=== PATIENT | female | born 1980 | race Caucasian/White ===

== ENCOUNTER 2017-12-24 17:31 | Observation (INO) ==
[2017-12-24] MEDS ORDERED: Ondansetron 4 MG/2 ML VIAL IVP ONE (18:17)
[2017-12-24 18:35] LABS: Bilirubin,Urine Negative (Negative); Blood,Urine Negative (Negative); Clarity,Urine Clear (Clear); Color,Urine Yellow (Yellow); Glucose,Urine (UA) Normal (Normal); Ketones,Urine Trace mg/dL (Negative); Leukocyte Esterase,Urine Negative (Negative); Nitrite,Urine Negative (Negative); Protein,Urine Trace mg/dL (Neg-Trace); Specific Gravity,Urine 1.017 (1.010-1.025); Urobilinogen,Urine Normal (Normal)
[2017-12-24 18:37] LABS: Bacteria,Urine Few per hpf (None-Few); Hyaline Casts,Urine None Seen per lpf (None-Few); Squamous Epithelial Cell,Urine Many per lpf (None-Few); WBC,Urine 0-3 per hpf (0-3)
[2017-12-24 19:12] LABS: Basophils # 0.1 K/mcL (0.0-0.2); Basophils % 0.5 %; Eosinophils # 0.1 K/mcL (0.0-0.6); Eosinophils % 1.2 %; Hematocrit 42.2 % (35.3-44.9); Immature Granulocytes % 0.3 % (0-4); Lymphocytes % 20.8 %; Mean Corpuscular HGB Conc 35.5 g/dL (31.6-35.5); Mean Corpuscular Hemoglobin 29.2 pg (28.0-33.3); Mean Corpuscular Volume 82.1 fL (83.0-100.0); Mean Platelet Volume 10.1 fL (9.4-12.4); Monocytes # 0.7 K/mcL (0.0-1.3); Monocytes % 6.9 %; Neutrophils # 6.6 K/mcL (1.6-8.9); Platelet Count 304 K/mcL (140-400); Red Blood Count 5.14 M/mcL (3.82-4.97); Red Cell Distribution Width 12.7 % (11.5-14.5); Segmented Neutrophils % 70.3 %
[2017-12-24 19:20] LABS: Troponin I < 0.03 ng/mL (< 0.04)
[2017-12-24 19:24] LABS: Alanine Aminotransferase 21 Units/L (7-52); Albumin 4.6 g/dL (3.5-5.7); Albumin/Globulin Ratio 1.5 (1.1-2.2); Alkaline Phosphatase 63 Units/L (34-104); Aspartate Amino Transferase 17 Units/L (13-39); BUN/Creatinine Ratio 19 (6-26); Bilirubin,Total 0.6 mg/dL (0.3-1.0); Blood Urea Nitrogen 11 mg/dL (6-20); Calcium 9.8 mg/dL (8.6-10.3); Carbon Dioxide 26 mEq/L (23-29); Chloride 99 mEq/L (98-107); Glucose 126 mg/dL (70-105); Osmolality,Calculated 285 (280-300); Potassium 3.4 mEq/L (3.5-5.1); Sodium 137 mEq/L (136-145); Total Protein 7.6 g/dL (6.4-8.9); eGFR For African Americans > 60 (> 60); eGFR For Non-African Americans > 60 (> 60)
[2017-12-24] MEDS ORDERED: *HR* FentaNYL (PF) 100 MCG/2 ML VIAL IVP ONE (19:27)
[2017-12-24] MEDS ORDERED: 0.9 % Sodium Chloride 1,000 ML IVC ONE ×2 (19:27→21:50)
[2017-12-24] MEDS ORDERED: Isovue-370 500 ML INFUS..BTL IV ONE (19:27)
--- NOTE | 2017-12-24 20:16 | Emergency Department Note ---
Disposition Clinical Impression: Abdominal pain Qualifiers: Abdominal location: generalized Qualified Code(s): R10.84 - Generalized abdominal pain Disposition: Still a Patient Condition: Fair Reasons to Return/Additional Instructions: Please follow-up with your primary care provider for continuation of your care. Return to the emergency department if you develop any worsening of your condition or if you develop new concerning symptoms. Referrals: Millie Rider MD [Primary Care Provider] - Forms: ED Satisfaction Letter Time of Disposition: 20:30 General Adult HPI - General Chief complaint: ED Dizziness Stated complaint: rectal bleeding Time Seen by Provider: 12/24/17 17:39 Source: EMS Mode of arrival: ambulatory Limitations: no limitations Nursing Notes Reviewed: Yes Vital Signs Reviewed: Yes - History of Present Illness HPI Narrative: 37-year-old female presents emergency department for further evaluation of abdominal pain and rectal bleeding. Patient states symptoms of present over the past 4 days. Never had symptoms like this in the past. Patient states she has large amount of blood mixed with stool with every bowel movement and states that she is having at least a 4-5 bowel movements a day. Patient states she became lightheaded today and fell twice prior to arrival to the emergency department. Mother states that patient had seizure-like activity. She has a history of psychogenic seizures and is followed by a neurologist at [facility]. Patient denies new medications. She does not take antiepileptic medications. No recent fever, chills, nausea, vomiting. Patient denies recent trauma. Patient has a history of colitis and states that this feels somewhat similar to that pain. Pain Scale: 9 - Related Data Home Medications Medication Instructions Recorded Confirmed Albuterol Sulfate [Proair Hfa] 2 puff IH Q4H PRN 05/05/16 09/16/16 Aspirin 81 mg PO DAILY 05/05/16 09/28/17 Atorvastatin [Lipitor] 40 mg PO HS 05/05/16 09/28/17 Insulin Glargine,Hum.rec.anlog 50 unit SQ BID 05/05/16 09/28/17 [Lantus Solostar] Alogliptin Benzoate [Alogliptin] 25 mg PO DAILY 09/28/17 09/28/17 Dexlansoprazole [Dexilant] 60 mg PO DAILY 09/28/17 09/28/17 Diltiazem CD (24hr) [Cardizem CD] 180 mg PO BID 09/28/17 09/28/17 Gabapentin [Neurontin] 600 - 1,200 mg PO TID 09/28/17 09/28/17 Hyoscyamine Sulfate [Hyoscyamine 0.375 mg PO BID 09/28/17 09/28/17 Sulfate ER] Liraglutide [Victoza 2-Ritesh] 1.8 mg SQ DAILY 09/28/17 09/28/17 Losartan Potassium [Cozaar] 100 mg PO DAILY 09/28/17 09/28/17 Melatonin [Melatin] 3 mg PO HS 09/28/17 09/28/17 Propranolol HCl [Innopran Xl] 120 mg PO DAILY 09/28/17 09/28/17 Ranitidine HCl [Heartburn Relief] 150 mg PO HS 09/28/17 09/28/17 hydrOXYzine HCl [Hydroxyzine HCl] 50 mg PO HS 09/28/17 09/28/17 hydroCHLOROthiazide 25 mg PO QAM 09/28/17 09/28/17 [Hydrochlorothiazide] Previous Rx's Medication Instructions Recorded Potassium Chloride 10 meq PO DAILY #30 tab.er.prt 09/28/17 Dicyclomine [Bentyl] 10 mg PO QID #12 capsule 11/04/17 Ondansetron ODT [Zofran ODT] 4 mg SL Q8HR PRN #12 tab.rapdis 11/04/17 Phenazopyridine HCl [Pyridium] 200 mg PO TIDAC #9 tab 12/19/17 Allergies Allergy/AdvReac Type Severity Reaction Status Date / Time morphine Allergy Hives Verified 11/04/17 16:48 All systems ED: reviewed and negative except as stated. Review of Systems: As Per HPI Past Medical History - Past Medical History Attestation: Yes The following information was validated with the patient. Source: patient Medical history: Reports: diabetes, GERD, hyperlipidemia, hypertension Surgical history: Reports: cholecystectomy, other Psychiatric history: Reports: no psych history - Social History Smoking Status: Never smoker Smokeless Tobacco Status: No Alcohol use: Reports: none, unknown Drug use: Reports: none, unknown Physical Exam General: Alert and in no acute distress Skin: Warm, dry, intact Head: Normocephalic and atraumatic Neck: Supple, trachea midline and no tenderness Cardiovascular: RRR, no murmur, normal perfusion Respiratory: CTAB, no wheezing, cough, or respiratory distress Musculoskeletal: Normal strength, no tenderness, swelling or deformity GI: Soft, tenderness to palpation of the generalized abdomen without evidence of localization, rigidity, guarding, rebound. Neuro: A&O to person, place, time and situation. No focal deficits noted on exam Psychiatric: cooperative and appropriate mood and affect. Rectal exam: Hematochezia with bright red blood per rectum on exam that was guaiac positive. - General Limitations: no limitations General appearance: alert, lethargic Course Vital Signs Temperature 99.2 F 12/24/17 17:35 Pulse Rate 105 12/24/17 17:35 Respiratory Rate 18 12/24/17 17:35 Blood Pressure 127/79 12/24/17 17:35 O2 Sat by Pulse Oximetry 99 12/24/17 17:35 Temperature 99.2 F 12/24/17 17:35 Pulse Rate 103 12/24/17 19:30 Respiratory Rate 18 12/24/17 17:35 Blood Pressure 112/74 12/24/17 19:30 O2 Sat by Pulse Oximetry 99 12/24/17 17:35 Oxygen Delivery Oxygen Delivery Room Air Medical Decision Making - MDM Narrative Medical decision making narrative: Patient care transferred to Dr. Powell pending CT results and IV fluids and reevaluation and disposition. - Medical Records Medical records reviewed: Yes I reviewed the patient's medical records. - Lab Data Lab results reviewed: Yes I reviewed the patient's lab results. Result diagrams: 12/24/17 18:34 12/24/17 18:34 Lab Results 12/24/17 12/24/17 12/24/17 Range/Units 18:00 18:34 18:34 WBC 9.4 (4.3-11.1) K/mcL RBC 5.14 H (3.82-4.97) M/mcL Hgb 15.0 (11.5-15.4) g/dL Hct 42.2 (35.3-44.9) % MCV 82.1 L (83.0-100.0) fL MCH 29.2 (28.0-33.3) pg MCHC 35.5 (31.6-35.5) g/dL RDW 12.7 (11.5-14.5) % Plt Count 304 (140-400) K/mcL MPV 10.1 (9.4-12.4) fL Immature Gran % 0.3 (0-4) % Seg Neutrophils % 70.3 % Lymphocytes % 20.8 % Monocytes % 6.9 % Eosinophils % 1.2 % Basophils % 0.5 % Neutrophils # 6.6 (1.6-8.9) K/mcL Lymphocytes # 2.0 (0.6-4.6) K/mcL Monocytes # 0.7 (0.0-1.3) K/mcL Eosinophils # 0.1 (0.0-0.6) K/mcL Basophils # 0.1 (0.0-0.2) K/mcL Sodium 137 (136-145) mEq/L Potassium 3.4 L (3.5-5.1) mEq/L Chloride 99 (98-107) mEq/L Carbon Dioxide 26 (23-29) mEq/L BUN 11 (6-20) mg/dL Creatinine 0.59 L (0.60-1.20) mg/dL Est GFR ( Amer) > 60 (> 60) Est GFR (Non-Af Amer) > 60 (> 60) BUN/Creatinine Ratio 19 (6-26) Glucose 126 H (70-105) mg/dL Calculated Osmolality 285 (280-300) Calcium 9.8 (8.6-10.3) mg/dL Total Bilirubin 0.6 (0.3-1.0) mg/dL AST 17 (13-39) Units/L ALT 21 (7-52) Units/L Alkaline Phosphatase 63 (34-104) Units/L Troponin I < 0.03 (< 0.04) ng/mL Serum Total Protein 7.6 (6.4-8.9) g/dL Albumin 4.6 (3.5-5.7) g/dL Globulin 3.0 (2.4-3.5) g/dL Albumin/Globulin Ratio 1.5 (1.1-2.2) Urine Color Yellow (Yellow) Urine Clarity Clear (Clear) Urine pH 8.0 (5.0-8.0) pH Units Ur Specific [place] 1.017 (1.010-1.025) Urine Protein Trace (Neg-Trace) mg/dL Urine Glucose (UA) Normal (Normal) mg/dL Urine Ketones Trace H (Negative) mg/dL Urine Blood Negative (Negative) Urine Nitrite Negative (Negative) Urine Bilirubin Negative (Negative) Urine Urobilinogen Normal (Normal) mg/dL Ur Leukocyte Esterase Negative (Negative) Urine Microscopic RBC 3-5 H (0-3) per hpf Urine Microscopic WBC 0-3 (0-3) per hpf Ur Squamous Epith Cells Many H (None-Few) per lpf Urine Bacteria Few (None-Few) per hpf Hyaline Casts None Seen (None-Few) per lpf Ur Culture Indicated? NO (NO) - Radiology Data Radiology results reviewed: Yes I reviewed the patient's radiology results. - EKG Data EKG #1 EKG attestation: Yes I reviewed and interpreted this EKG. EKG results narrative: Sinus tachycardia with a rate of 104 without evidence of STEMI.
--- NOTE | 2017-12-24 22:28 | Emergency Department Note ---
START Narrative - START START: Pt signed out to me by dr mcnally. pt still having symptoms and feels dizzy and weak when getting out of bed. pt wanted admitted. she's on her 2nd L of fluid. will admit for obs. spoke to hospitalist vss at this time afebrile admit for workup for hematochezia with abd pain.
--- NOTE | 2017-12-25 01:20 | Internal Med History&Physical ---
Date of Encounter: 12/25/17 Time of Encounter: 00:53 Internal Medicine - H&P: HPI Chief complaint: rectal bleeding and dizziness Admitted From: Home Plans for Post Hospital Care: Home History of present illness: Ms. Fonseca is a 37 year old female with a past medical history of GERD, gastroparesis, IBS, diabetes, tachycardia, and hypertension who presented to the ED with abdominal pain and rectal bleeding. 3 days ago patient states that she began to have bloody stools she usually has 5-6 bowel movements and is noticing bright red blood on outside and mixed within the stools every time she goes. She states that there is some much blood on the toilet paper it seems as though she is on her period. She is not having pain near her anal opening and has not felt a mass. She does not know if she has hemroids but has not been straining more than normal. She states that she has chronic abdominal pain but it has worsened over the last 3 days and has been a constant stabbing and crampy pain. Her pain is diffuse but is worse in the suprapubic region bilaterally. She has chronic dizziness but has been dizzy more frequently since this began. She also reports having some burning with urination and increased frequency about 1 month ago and was diagnosed with a UTI due to Escherichia coli and was placed on Cipro initially then switched to Macrobid which she finished 1 week ago. Admits to still having dysuria. She denies recent travel, drinking stream water, or cooking raw chicken/eating raw eggs. She admits to fevers that been going on for months every few days ranging between temperature of 99-102. Patient recently saw GI on 12/18/17 where she reported having a colonoscopy and EGD approximately 5 months ago at [facility]. EGD report showed a polyp with no evidence of H. pylori. Patient also had a liver biopsy and was found to have a hepatic adenoma with steatosis, hemorrhage, and inflammation. Colonoscopy showed 1 tubular adenoma polyp no evidence of Crohn's or ulcerative colitis. She has also had a uterine ablation and has not had a period for 4 years since the ablation. Upon arrival to the ED patient was tachycardic at 105, blood pressure was within normal limits. orthostatic blood pressures negative. Labs showed Hemoglobin 15, MCV 82, potassium 3.4. Due to intractable abdominal pain, patient was admitted to the med/surg floor. Recent imaging studies: CTA chest and angio abdomen pelvis 09/27/17: 2. Multiple solid left pulmonary nodules. 3. 1.5 cm indeterminate right hepatic lesion. Recommend nonemergent MRI of the abdomen with without contrast using hemangioma protocol if there is no prior imaging. Head CT without contrast 09/27/17: No acute intracranial abnormality. Past Med Surg Social Fam HX - Past Medical History Medical history: diabetes, GERD, hyperlipidemia, hypertension Additional medical history: tachycardia. frequent headaches Psychiatric history: no psych history - Past Surgical History Surgical History: cholecystectomy, other Additional surgical history: tubal ligation. uterine ablation. cyst removed from Right side of head. partial liver removed - Social History Smoking Status: Never smoker Smokeless Tobacco Status: No Alcohol use: none, unknown Drug use: none, unknown - Family History Mother Living Status: Still Living Hx Family Cardiac Disorders: Yes Hx Family Respiratory Disorders: Yes (COPD) Hx Family Cancer: Yes (uterus) Father Living Status: Still Living Hx Family Cancer: Yes (bladder) Internal Medicine - H&P: Meds Albuterol Sulfate [Proair Hfa] 2 puff IH Q4H PRN 05/05/16 [History] Aspirin 81 mg PO DAILY 05/05/16 [History] Atorvastatin [Lipitor] 40 mg PO HS 05/05/16 [History] Alogliptin Benzoate [Alogliptin] 25 mg PO DAILY 09/28/17 [History] Dexlansoprazole [Dexilant] 60 mg PO DAILY 09/28/17 [History] Diltiazem CD (24hr) [Cardizem CD] 180 mg PO BID 09/28/17 [History] Gabapentin [Neurontin] 600 - 1,200 mg PO DAILY PRN 09/28/17 [History] Hyoscyamine Sulfate [Hyoscyamine Sulfate ER] 0.375 mg PO BID 09/28/17 [History] Losartan Potassium [Cozaar] 100 mg PO HS 09/28/17 [History] Potassium Chloride 10 meq PO DAILY #30 tab.er.prt 09/28/17 [Rx] Ranitidine HCl [Heartburn Relief] 150 mg PO HS 09/28/17 [History] hydrOXYzine HCl [Hydroxyzine HCl] 50 mg PO HS 09/28/17 [History] Ondansetron ODT [Zofran ODT] 4 mg SL Q8HR PRN #12 tab.rapdis 11/04/17 [Rx] Insulin Degludec [Tresiba Flextouch U-200] 110 unit SQ QPM 12/24/17 [History] Melatonin 5 mg PO HS 12/24/17 [History] hydroCHLOROthiazide [Hydrochlorothiazide] 50 mg PO QAM 12/24/17 [History] 3 Allergy/AdvReac Type Severity Reaction Status Date / Time morphine Allergy Hives Verified 12/24/17 23:14 All Systems PM: A 10-system review of systems was performed and is negative for pertinent findings except as documented above in the HPI. - Constitutional Vitals: Temp Pulse Resp BP Pulse Ox 98 F 98 17 125/85 94 12/25/17 00:40 12/25/17 00:40 12/25/17 00:40 12/25/17 00:40 12/25/17 00:40 Exam: Constitutional: Alert, in no acute distress, obese Head: Normocephalic, atraumatic Heart: Normal, regular rate and rhythm, no murmurs Lungs: Clear to auscultation, no wheezes, rales, or rhonchi Abdomen: suprapubic tenderness bilaterally, Soft, nondistended,, bowel sounds present and normal, no guarding or rigidity. Extremities: No edema, No clubbing, radial pulse +2/4, capillary refill <2sec. Skin: Skin warm and dry, no lesions, no rashes, no jaundice Neurologic: Cranial nerves II through XII grossly intact, strength 5/5 in all extremitites Psych: Cooperative with exam, good eye contact, cognitive function intact, speech clear, thought process logical, and goal directed Internal Med - H&P Results - Labs CBC & Chem 7: 12/24/17 18:34 12/24/17 18:34 - Assessment and plan (1) Rectal bleeding Current Visit: Yes Status: Acute Assessment and plan: Bright red blood per rectum, nonpainful. Most likely 2/2 to internal hemrroids as patient does not have anal pain. Last colonoscopy 5 months ago negative for IBD. Hemoglobin 15 (14.2 previous 12/19/17). Patient has seeing GI outpatient but was not having this problem at the time. If patient's H/H remain stable and vitals continue to be stable rectal bleeding can continue to be worked up as outpatient. Vitals are currently stable. Plan: - occult blood test - GI stool panel - repeat H/H in the AM (2) Abdominal pain Current Visit: Yes Status: Acute Assessment and plan: Suprapublic pain. UA negative for UTI. CT abdomen shows stable peripherally calcified lesion in the posterior right hepatic dome. No diverticulosis. Urinary bladder and pelvic organs wnl. Abdomen is soft non-distended and without peritonitis signs. Patient has chronic abdominal pain due to her IBS and therefore this may be due to flair of IBS. Plan: - Zofran Q4H - pain control: [place] - GI stool panel and ova and parasite Qualifiers: Abdominal location: generalized Qualified Code(s): R10.84 - Generalized abdominal pain (3) Hypokalemia Current Visit: Yes Status: Acute Assessment and plan: K= 3.4, given potassium chloride 40meq once. (4) Dizziness, nonspecific Current Visit: Yes Status: Acute Assessment and plan: Chronic dizziness, recently worsened. Denies syncope but has fallen over. Unsure of cause of dizziness as patient is not anemic. Dizziness may be 2/2 to her tachycardia which has also caused syncope. Plan: - repeat H/H in the AM (5) Pulmonary nodule Current Visit: Yes Status: Chronic Assessment and plan: Multiple nodules, largest 11mm. CTA 09/20, 11mm nodule present. Outpatient f/u for CT in 18-24 months. (6) HTN (hypertension) Current Visit: Yes Status: Chronic Assessment and plan: Continue home Losartan and Cardizem Qualifiers: Hypertension type: essential hypertension Qualified Code(s): I10 - Essential (primary) hypertension (7) Psychogenic nonepileptic seizure Current Visit: Yes Status: Acute Assessment and plan: Patient has had inpatient stay at [facility] to work up seizures and was diagnosed with psychogenic seizures. She has not had one in a month but had one today. She does not take any medications for this. (8) Gastroparesis Current Visit: Yes Status: Chronic Assessment and plan: Recently diagnosed with gastroparesis and GI prescribed Zofran at last appointment. (9) GERD (gastroesophageal reflux disease) Current Visit: Yes Status: Chronic Assessment and plan: Continue home Ranitidine and Dexlansoprazole. EGD within the last 6 months. Qualifiers: Esophagitis presence: without esophagitis Qualified Code(s): K21.9 - Gastro -esophageal reflux disease without esophagitis (10) IBS (irritable bowel syndrome) Current Visit: Yes Status: Chronic Assessment and plan: IBS with diarrhea and constipation. Continue Bentyl and Zofran Qualifiers: Irritable bowel syndrome type: with both diarrhea and constipation Qualified Code(s): K58.2 - Mixed irritable bowel syndrome (11) DMII (diabetes mellitus, type 2) Current Visit: No Status: Acute Assessment and plan: Home medications include Lantus. Patient has taken evening Lantus. Blood glucose 112. Plan: - low sliding scale - Accu checks TIDAC and HS - Lantus 30 units HS Qualifiers: Diabetes mellitus long term care administrator insulin use: with chcf use Diabetes mellitus complication status: without complication Qualified Code(s): E11.9 - Type 2 diabetes mellitus without complications; Z79.4 - superintendent terminal (current) use of insulin (12) Tachycardia Current Visit: Yes Status: Chronic Assessment and plan: Patient states that she is crying tachycardia and if she does not take her Cardizem her heart rate increases to 140s. They are unsure the etiology and she is going to [facility] to see a specialist. Continue Cardizem. (13) Chronic insomnia Current Visit: Yes Status: Acute Assessment and plan: Continue home melatonin and hydroxyzine (14) DVT prophylaxis Current Visit: Yes Status: Acute Assessment and plan: ICDs - Time Spent With Patient Total time spent is greater than 50% in coordination of care (as documented) at patient's floor/unit and/or counseling patient:
[2017-12-25] MEDS ORDERED: Naloxone 0.4 MG/ML INJ IVP PRN (03:11)
[2017-12-25] MEDS ORDERED: Acetaminophen 325 MG TABLET PO PRN (03:11)
[2017-12-25] MEDS ORDERED: Gabapentin 300 MG CAPSULE PO PRN (03:35)
[2017-12-25] MEDS ORDERED: D5% in Water 1,000 ML IVC PRN (03:39)
[2017-12-25] MEDS ORDERED: *HR* Dextrose 50 % in Water (Syg) 50 ML SYRINGE IVP PRN (03:39)
[2017-12-25] MEDS ORDERED: Dextrose Gel 15 GM/37.5 ML TUBE PO PRN ×2 (03:39)
[2017-12-25] MEDS ORDERED: *HR* Promethazine 25 MG/ML VIAL IVP PRN (03:52)
[2017-12-25] MEDS: hydrOXYzine pamoate 25 MG CAPSULE PO SCH ×2 (04:12→22:08)
[2017-12-25] MEDS: Melatonin 3 MG TABLET PO SCH ×2 (04:12→22:09)
[2017-12-25] MEDS: *HR* HYDROcodone/Acet 5/325 mg TABLET PO PRN ×3 (04:12→22:09)
[2017-12-25] MEDS: Ondansetron 4 MG/2 ML VIAL IVP PRN ×2 (04:12→22:11)
[2017-12-25 05:31] LABS: INR 1.1; Prothrombin Time 12.4 Seconds (9.4-12.1)
[2017-12-25 05:45] LABS: Magnesium 1.8 mg/dL (1.6-2.6); Phosphorous 4.1 mg/dL (2.7-4.5)
[2017-12-25 05:46] LABS: Alanine Aminotransferase 20 Units/L (7-52); Albumin 4.1 g/dL (3.5-5.7); Albumin/Globulin Ratio 1.5 (1.1-2.2); Alkaline Phosphatase 53 Units/L (34-104); Aspartate Amino Transferase 16 Units/L (13-39); BUN/Creatinine Ratio 13 (6-26); Bilirubin,Total 0.7 mg/dL (0.3-1.0); Blood Urea Nitrogen 7 mg/dL (6-20); Calcium 8.9 mg/dL (8.6-10.3); Carbon Dioxide 23 mEq/L (23-29); Chloride 104 mEq/L (98-107); Globulin 2.8 g/dL (2.4-3.5); Glucose 109 mg/dL (70-105); Osmolality,Calculated 283 (280-300); Potassium 3.4 mEq/L (3.5-5.1); Sodium 137 mEq/L (136-145); Total Protein 6.9 g/dL (6.4-8.9); eGFR For African Americans > 60 (> 60); eGFR For Non-African Americans > 60 (> 60)
--- NOTE | 2017-12-25 07:24 | Electrocardiograph Report ---
[address] [place], [place] [address] Test Date: 2017-12-24 Pat Name: Stephanie Fonseca Department: 104 Room: 3B Gender: F [employer] Faculty Member: AURELIA : 1980 Requested By: Albert Bazzi Order Number: [id number] Reading MD: Nate Knight Measurements Intervals [place] Rate: 104 P: 48 ND: 171 QRS: 56 QRSD: 105 T: 46 QT: 357 QTc: 418 Interpretive Statements SINUS TACHYCARDIA Poor R wave progression Electronically Signed On 12-25-2017 7:22:02 EDT by Nate Knight
[2017-12-25] MEDS: Aspirin 81 MG TAB.CHEW PO SCH (09:34)
[2017-12-25] MEDS: hydroCHLOROthiazide 25 MG TABLET PO SCH (09:34)
[2017-12-25] MEDS: Insulin LISPRO 300 UNITS/3 ML VIAL SQ SCH ×3 (09:35→18:23)
[2017-12-25] MEDS: Diltiazem SR (12hr) 90 MG CAPSULE PO SCH ×2 (09:35→22:09)
[2017-12-25 12:15] LABS: Hematocrit 38.7 % (35.3-44.9)
[2017-12-25 12:16] LABS: Hemoglobin 13.2 g/dL (11.5-15.4)
--- NOTE | 2017-12-25 17:54 | Internal Med Progress Note ---
Date of Encounter: 12/25/17 Time of Encounter: 11:30 - Assessment and plan (1) DMII (diabetes mellitus, type 2) Current Visit: Yes Status: Chronic Assessment and plan: Continue diabetic diet, Accu-Chek ACS, sliding scale insulin. Qualifiers: Diabetes mellitus terminal carman insulin use: with group home use Diabetes mellitus complication status: without complication Qualified Code(s): E11.9 - Type 2 diabetes mellitus without complications; Z79.4 - terminal carman (current) use of insulin (2) Abdominal pain Current Visit: Yes Status: Acute Assessment and plan: Patient reports chronic abdominal pain. Periumbilical pain. Patient with extensive GI history including gastroparesis, irritable bowel, GERD. UA negative for UTI. CT abdomen shows stable peripherally calcified lesion in the posterior right hepatic dome. No diverticulosis. Urinary bladder and pelvic organs wnl. Abdomen is soft non-distended and without peritonitis signs. Discussed case with GI. They recommended low fiber diet due to gastroparesis, adding Zantac 75 mg in the evening, as well as Proctofoam. Plan: - Zofran Q4H - pain control: [place] - GI stool panel and ova and parasite Low fiber diet Zantac and omeprazole Qualifiers: Abdominal location: generalized Qualified Code(s): R10.84 - Generalized abdominal pain (3) Rectal bleeding Current Visit: Yes Status: Acute Assessment and plan: Stool occult blood is negative. Patient reports bright red rectal bleeding that is streaked in her stool as well as on the toilet paper when she wipes. Patient denies feeling toilet bowl with blood. Abdominal pain as above. Hemoglobin is stable, will trend overnight. Patient denies knowledge of either internal or external hemorrhoids, however we will treat with Proctofoam. Discussed case with GI nurse practitioner, he recommends the addition of a little fiber diet in light of gastroparesis, Zantac in addition to her PPI, and Proctofoam. He wants patient to follow-up in the office in 1-2 weeks to discuss EGD and colonoscopy. (4) DVT prophylaxis Current Visit: Yes Status: Acute Assessment and plan: SCD, no pharmacological prophylaxis due to GIB. (5) HTN (hypertension) Current Visit: Yes Status: Chronic Assessment and plan: Chronic. Well controlled. Continue home medications. Qualifiers: Hypertension type: essential hypertension Qualified Code(s): I10 - Essential (primary) hypertension (6) Gastroparesis Current Visit: Yes Status: Chronic Assessment and plan: Chronic. (7) GERD (gastroesophageal reflux disease) Current Visit: Yes Status: Chronic Assessment and plan: Chronic. Plan as above. Qualifiers: Esophagitis presence: without esophagitis Qualified Code(s): K21.9 - Gastro -esophageal reflux disease without esophagitis (8) IBS (irritable bowel syndrome) Current Visit: Yes Status: Chronic Assessment and plan: Chronic. Plan as above. Qualifiers: Irritable bowel syndrome type: with both diarrhea and constipation Qualified Code(s): K58.2 - Mixed irritable bowel syndrome (9) Tachycardia Current Visit: Yes Status: Chronic (10) Chronic insomnia Current Visit: Yes Status: Resolved (11) Dizziness, nonspecific Current Visit: Yes Status: Resolved (12) Pulmonary nodule Current Visit: Yes Status: Chronic Assessment and plan: Multiple nodules, largest 11mm. CTA 09/20, 11mm nodule present. Outpatient f/u for CT in 18-24 months. (13) Hypokalemia Current Visit: Yes Status: Acute Assessment and plan: PO supplementation. Continue to monitor. (14) Psychogenic nonepileptic seizure Current Visit: Yes Status: Chronic Assessment and plan: Patient has had inpatient stay at [facility] to work up seizures and was diagnosed with psychogenic seizures. She has not had one in a month but had one today. She does not take any medications for this. Continue seizure precautions. - Time Spent With Patient Total time spent is greater than 50% in coordination of care (as documented) at patient's floor/unit and/or counseling patient: less than 15 minutes - Subjective Interval history: Patient was seen and assessed at bedside at 11:30 AM. Male visitor at bedside. Patient reports abdominal pain and rectal bleeding. Patient has extensive GI history. She reports tenderness all over, patient has tenderness to palpation around the umbilicus. She reports bright red rectal bleeding with every bowel movement. She reports that this is day 4. She reports bleeding only with wiping and denies known history of hemorrhoids either internal or external. - Constitutional Vitals: Temp Pulse Resp BP Pulse Ox 98.3 F 95 18 117/71 98 12/25/17 16:06 12/25/17 16:06 12/25/17 16:06 12/25/17 16:06 12/25/17 11:02 General appearance: Present: A&O X 3, pleasant, no acute distress, answers questions appropriately - Head Head exam: Present: atraumatic, normal inspection, normocephalic - Eye Eye exam: Present: normal appearance, conjuntiva pink, sclera anicteric - Neck Neck exam general surgery: Present: supple, trachea midline. Absent: lymphadenopathy, tenderness - Respiratory Respiratory exam: Present: CTAB. Absent: accessory muscle use, chest wall tenderness, rales, respiratory distress, rhonchi, wheezes - Cardiovascular Cardiovascular exam: Present: RRR, +S1, +S2. Absent: diastolic murmur, gallop, rubs, systolic murmur - GI/Abdominal GI/Abdominal exam: Present: normal bowel sounds, soft. Absent: distended, tenderness - Extremities Exam Extremities exam: Present: normal capillary refill, normal inspection, warm, radial pulses palpable and symmetrical. Absent: calf tenderness, cyanotic, pedal edema, tenderness - Neurological Exam Neurological exam: Present: alert, oriented X3, no focal deficits. Absent: facial droop, speech deficit - Skin Skin exam: Present: dry, intact, normal color, warm. Absent: rash Internal Medicine: Result - Labs CBC & Chem 7: 12/25/17 11:50 12/25/17 05:11 Labs: Short CBC 12/25/17 Range/Units 11:50 Hgb 13.2 D (11.5-15.4) g/dL Hct 38.7 (35.3-44.9) % BMP 12/25/17 05:11 Sodium 137 Potassium 3.4 L Chloride 104 Carbon Dioxide 23 BUN 7 Creatinine 0.54 L Glucose 109 H Calcium 8.9 Liver Function 12/25/17 Range/Units 05:11 Total Bilirubin 0.7 (0.3-1.0) mg/dL AST 16 (13-39) Units/L ALT 20 (7-52) Units/L Alkaline Phosphatase 53 (34-104) Units/L Albumin 4.1 (3.5-5.7) g/dL - ABG Interpretation ABG results: PT/INR, D-dimer PT 12.4 Seconds (9.4-12.1) H 12/25/17 05:11 - VTE Documentation of Mechanical Device: Intermittent pneumatic compression device Consult Discharge Plan - Plan Referrals: Millie Rider MD [Primary Care Provider] -
[2017-12-25] MEDS ORDERED: Famotidine 20 MG TABLET PO SCH (21:00)
[2017-12-25] MEDS ORDERED: Insulin DETEMIR 100 UNIT/ML X5UNITS SQ SCH (21:00)
[2017-12-25] MEDS ORDERED: Insulin LISPRO 300 UNITS/3 ML VIAL SQ SCH (21:00)
[2017-12-25] MEDS: Pramoxine 15 GM FOAM Package TP SCH (22:11)
[2017-12-26] MEDS: *HR* HYDROcodone/Acet 5/325 mg TABLET PO PRN (05:28)
[2017-12-26] MEDS: Ondansetron 4 MG/2 ML VIAL IVP PRN (05:28)
[2017-12-26 05:36] LABS: Basophils # 0.1 K/mcL (0.0-0.2); Basophils % 0.7 %; Eosinophils # 0.3 K/mcL (0.0-0.6); Eosinophils % 3.2 %; Hematocrit 39.2 % (35.3-44.9); Hemoglobin 13.8 g/dL (11.5-15.4); Immature Granulocytes % 0.4 % (0-4); Lymphocytes # 2.7 K/mcL (0.6-4.6); Lymphocytes % 31.3 %; Mean Corpuscular HGB Conc 35.2 g/dL (31.6-35.5); Mean Corpuscular Hemoglobin 29.4 pg (28.0-33.3); Mean Corpuscular Volume 83.6 fL (83.0-100.0); Monocytes # 0.7 K/mcL (0.0-1.3); Monocytes % 8.2 %; Neutrophils # 4.8 K/mcL (1.6-8.9); Platelet Count 284 K/mcL (140-400); Red Blood Count 4.69 M/mcL (3.82-4.97); Segmented Neutrophils % 56.2 %
[2017-12-26] MEDS: hydroCHLOROthiazide 25 MG TABLET PO SCH (08:30)
[2017-12-26] MEDS: Diltiazem SR (12hr) 90 MG CAPSULE PO SCH (08:30)
[2017-12-26] MEDS: Aspirin 81 MG TAB.CHEW PO SCH (08:30)
[2017-12-26] MEDS: Pramoxine 15 GM FOAM Package TP SCH (08:32)
[2017-12-26] MEDS: Insulin LISPRO 300 UNITS/3 ML VIAL SQ SCH ×2 (08:38→11:52)
[2017-12-26 10:58] VITALS: BP 99/63
[2017-12-26 12:24] LABS: Hematocrit 39.6 % (35.3-44.9); Hemoglobin 13.6 g/dL (11.5-15.4)
--- NOTE | 2017-12-26 13:05 | Discharge Summary ---
- NOTES TO OUTPATIENT PROVIDER Notes to Outpatient Provider: Pt was admitted for possible GIB and abdominal pain. Hgb has remained stable and WNL and pt reports resolution of rectal bleeding today. Pt still has some umbilical pain and will continue her home medications and will follow up with GI in the office in 1-2 weeks. Orders not resulted at time of discharge: Pending orders 12/25/17 08:55 Ova & Parasite Exam Routine Date of Encounter: 12/26/17 Time of Encounter: 10:55 - Discharge Diagnosis (1) DMII (diabetes mellitus, type 2) Priority: Secondary Status: Chronic Assessment and Plan: Continue home medications and accucheck regimen after discharge. . Qualifiers: Diabetes mellitus tube wrapper insulin use: with care home use Diabetes mellitus complication status: without complication Qualified Code(s): E11.9 - Type 2 diabetes mellitus without complications; Z79.4 - halfway (current) use of insulin (2) Abdominal pain Priority: Primary Status: Acute Assessment and Plan: Patient reports chronic abdominal pain. Periumbilical pain. UA negative for UTI. CT abdomen shows stable peripherally calcified lesion in the posterior right hepatic dome. No diverticulosis. Urinary bladder and pelvic organs wnl. Abdomen is soft non-distended and without peritonitis signs. Discussed case with GI. They recommended low fiber diet due to gastroparesis, adding Zantac 75 mg in the evening, as well as Proctofoam. Also will send pt with rx for Zofran ODT Qualifiers: Abdominal location: generalized Qualified Code(s): R10.84 - Generalized abdominal pain (3) Rectal bleeding Priority: Secondary Status: Resolved Assessment and Plan: Pt reports resolution of bleeding. Hbg has remained stable, no signs of bleeding or anemia. Proctofoam for discharge. Follow up with GI in 1-2 weeks in the clinic. (4) DVT prophylaxis Priority: Secondary Status: Acute Assessment and Plan: SCD, no pharmacological prophylaxis due to GIB. Pt was ambulatory in the room. (5) HTN (hypertension) Priority: Secondary Status: Chronic Assessment and Plan: Chronic. Stable. Continue home medications. Qualifiers: Hypertension type: essential hypertension Qualified Code(s): I10 - Essential (primary) hypertension (6) Gastroparesis Priority: Secondary Status: Chronic Assessment and Plan: Chronic. Low fiber diet. Follow with GI (7) GERD (gastroesophageal reflux disease) Priority: Secondary Status: Chronic Assessment and Plan: Chronic. Plan as above. Continue home medications. Qualifiers: Esophagitis presence: without esophagitis Qualified Code(s): K21.9 - Gastro -esophageal reflux disease without esophagitis (8) IBS (irritable bowel syndrome) Priority: Secondary Status: Chronic Assessment and Plan: Chronic. Continue home medications and follow with GI in the next 1-2 weeks. Qualifiers: Irritable bowel syndrome type: with both diarrhea and constipation Qualified Code(s): K58.2 - Mixed irritable bowel syndrome (9) Tachycardia Priority: Secondary Status: Chronic Assessment and Plan: Resolved. (10) Chronic insomnia Priority: Secondary Status: Resolved Assessment and Plan: Continue home medications. (11) Dizziness, nonspecific Priority: Secondary Status: Resolved Assessment and Plan: Resolved. Pt denies today. Recommend that pt follow up with PCP for continued workup if symptoms persist. (12) Pulmonary nodule Priority: Secondary Status: Chronic Assessment and Plan: Multiple nodules, largest 11mm. CTA 09/20, 11mm nodule present. Outpatient f/u for CT in 18-24 months. (13) Hypokalemia Priority: Secondary Status: Acute Assessment and Plan: Resolved. Continue to monitor. (14) Psychogenic nonepileptic seizure Priority: Secondary Status: Chronic Assessment and Plan: Patient was inpatient at [facility] to work up for seizures and was diagnosed with psychogenic seizures. She is not on antiepileptic medications. Hospital course: Ms. Fonseca is a 37 year old female with extensive GI history including gastroparesis, IBS, GERD. She also has a past medical history of chronic insomnia, psychogenic nonepileptic seizures, type 2 diabetes, liver nodule, lung nodules, hypertension. Pt reported GIB and abdominal pain. Hgb remained stable, FOBS was positive. Pt reports that bleeding has stopped today, Hgb has remained stable and WNL. Pt reports some relief of abdominal pain, but medications have been optimized. I spoke with [facility] and pt is to follow up with them in the office in 1-2 weeks for evaluation and possible EGD and colonoscopy. Labs and vitals are stable and pt is ready for discharge. Discharge discussed with: patient, family - Time Spent with Patient Total time spent providing and/or coordinating discharge services: Less than 30 minutes - Discharge Medications Prescriptions: Ondansetron ODT [Zofran ODT] 4 mg PO Q6H PRN #14 tab.rapdis PRN Reason: Nausea Pramoxine HCl [Proctofoam] 15 gm TP BID #4 foam Home Medications: Albuterol Sulfate [Proair Hfa] 2 puff IH Q4H PRN 05/05/16 [History] Aspirin 81 mg PO DAILY 05/05/16 [History] Atorvastatin [Lipitor] 40 mg PO HS 05/05/16 [History] Alogliptin Benzoate [Alogliptin] 25 mg PO DAILY 09/28/17 [History] Dexlansoprazole [Dexilant] 60 mg PO DAILY 09/28/17 [History] Diltiazem CD (24hr) [Cardizem CD] 180 mg PO BID 09/28/17 [History] Gabapentin [Neurontin] 600 - 1,200 mg PO DAILY PRN 09/28/17 [History] Hyoscyamine Sulfate [Hyoscyamine Sulfate ER] 0.375 mg PO BID 09/28/17 [History] Losartan Potassium [Cozaar] 100 mg PO HS 09/28/17 [History] Potassium Chloride 10 meq PO DAILY #30 tab.er.prt 09/28/17 [Rx] Ranitidine HCl [Heartburn Relief] 150 mg PO HS 09/28/17 [History] hydrOXYzine HCl [Hydroxyzine HCl] 50 mg PO HS 09/28/17 [History] Ondansetron ODT [Zofran ODT] 4 mg SL Q8HR PRN #12 tab.rapdis 11/04/17 [Rx] Insulin Degludec [Tresiba Flextouch U-200] 110 unit SQ QPM 12/24/17 [History] Melatonin 5 mg PO HS 12/24/17 [History] hydroCHLOROthiazide [Hydrochlorothiazide] 50 mg PO QAM 12/24/17 [History] Ondansetron ODT [Zofran ODT] 4 mg PO Q6H PRN #14 tab.rapdis 12/26/17 [Rx] Pramoxine HCl [Proctofoam] 15 gm TP BID #4 foam 12/26/17 [Rx] Allergies/Adverse Reactions: 3 Allergy/AdvReac Type Severity Reaction Status Date / Time morphine Allergy Hives Verified 12/24/17 23:14 Date of admission: 12/24/17 22:59 Primary care physician: Millie Rider MD Discharging clinician: Anyi Irby Anticipated date of discharge: 12/26/17 - Constitutional Vitals: Temp Pulse Resp BP Pulse Ox 99.0 F 81 16 99/63 96 12/26/17 10:56 12/26/17 10:56 12/26/17 10:56 12/26/17 10:56 12/26/17 10:56 General appearance: Present: cooperative, A&O X 3, pleasant, no acute distress, answers questions appropriately - Head Head exam: Present: atraumatic, normal inspection, normocephalic - Eye Eye exam: Present: normal appearance, conjuntiva pink, sclera anicteric - Neck Neck exam general surgery: Present: supple, trachea midline. Absent: lymphadenopathy, tenderness - Respiratory Respiratory exam: Present: CTAB. Absent: accessory muscle use, chest wall tenderness, rales, rhonchi, wheezes - Cardiovascular Cardiovascular exam: Present: RRR, +S1, +S2. Absent: diastolic murmur, gallop, rubs, systolic murmur - GI/Abdominal GI/Abdominal exam: Present: normal bowel sounds, soft. Absent: distended, hepatomegaly, tenderness - Extremities Exam Extremities exam: Present: normal capillary refill, normal inspection, warm, radial pulses palpable and symmetrical. Absent: calf tenderness, cyanotic, pedal edema, tenderness - Neurological Exam Neurological exam: Present: alert, oriented X3, strengths equal and symetr throughout. Absent: pronater drift, facial droop, speech deficit - Skin Skin exam: Present: dry, intact, normal color, warm. Absent: rash - Patient Status Disposition: Home, Self-Care Condition: Good Functional capacity at discharge: independent ambulation Overall status at discharge: patient is back to baseline - Discharge Instructions Instructions: Rectal Bleeding (DC) Follow Up With: Millie Rider MD [Primary Care Provider] - Additional Instructions: Follow up with GI in the next 1-2 weeks. Your prescriptions are at your pharmacy. Follow up with your PCP in the next 7-10 days for a recheck. Return to the ER as needed for any other problems or concerns, or if your symptoms return or worsen. Follow-up appointments: If there is not an appointment listed below, please call your physician and schedule a follow-up appointment. If you have congestive heart failure and your symptoms return, make an appointment with your physician. Medication List: Carry an up to date list of medications you are taking at all time. We have given you an updated medication list including any new medications that you have been prescribed. Please provide that list to your primary provider Symptoms: If your condition changes or you experience any of the following symptoms, notify your physician immediately: Unusual or worsening pain, fever, persistent nausea and vomiting, bleeding, increase in swelling (especially in your legs), sudden weight gain, extreme dizziness, chest pain, increased drainage or redness from a wound or incision. Go to the emergency department if you experience a problem with breathing. Weights: If you have a history of swelling or shortness of breath, weigh yourself daily and notify your physician if you have a weight gain of two or more pounds in one day or 5 or more pounds in a week. If you experience any of the warning signs for stroke: Sudden numbness or weakness of the face, arm or leg; especially on one side of the body, sudden confusion, trouble speaking or understanding, sudden trouble seeing in one or both eyes, sudden trouble walking, dizziness, loss of balance or coordination, sudden sever headache with no cause; Call 911 or go to the emergency room. Stroke is a medical emergency. Some risk factors for stroke: Age, cigarette smoking, diabetes, excessive alcohol consumption, family history , high blood pressure, overweight, physical inactivity, prior stroke, heart attack, diagnosis of carotid artery stenosis or other artery disease. If you smoke, STOP: Smoking or tobacco use significantly increases your risk of heart and lung disease. Your chance of disease greatly increases if you continue to smoke. For more information, call the [place] tobacco quit line for smoking cessation QUIT-NOW ( ) - Diet and Activity Activity: increase activity as tolerated Diet: advance to your usual diet - VTE Documentation of Mechanical Device: Intermittent pneumatic compression device
[2017-12-30 08:18] LABS: Ova & Parasite Stain NEGATIVE (Negative)
== END 2017-12-26 15:05 | disposition home or self-care (01) ==
LOC: EMEROO 17:31 → 3BNU 17:31
PROVIDERS: ADMIT Family Medicine; ATTEND Family Medicine

== ENCOUNTER 2019-03-07 12:50 | Observation (INO) ==
--- NOTE | 2019-03-07 13:17 | Emergency Department Note ---
Disposition Clinical Impression: Chest pain Qualifiers: Chest pain type: unspecified Qualified Code(s): R07.9 - Chest pain, unspecified Dyspnea Qualifiers: Dyspnea type: unspecified Qualified Code(s): R06.00 - Dyspnea, unspecified Disposition: Admitted As Inpatient Time of Disposition: 16:35 Chest Pain HPI - General Chief Complaint: ED Chest Pain Stated Complaint: chest pain,nausea Time Seen by Provider: 03/07/19 12:59 Source: patient Limitations: no limitations Vital Signs Reviewed: Yes Nursing Notes Reviewed: Yes - History of Present Illness HPI Narrative: Patient is a 38-year-old female with past medical history including type 2 diabetes mellitus, hypertension, hyperlipidemia, presenting with a chief complaint of chest pain. The patient states 2 hours prior to arrival, she suddenly developed right sided and substernal chest pain that was sharp and radiating into her right arm. She states she felt really nauseous and short of breath associated with this. Nothing makes it better or worse. She has never scans this before. She states she was sitting in the car when this happened. Denies any palpitations, lightheadedness or dizziness, abdominal pain, fevers or chills, recent travel or surgery, history of blood clots, hormone therapy, history of cancer, history of coronary artery disease or stent placements, family history of MO less than age 50. Patient states she has had an aspirin today. Severity scale (1-10): 9 - Related Data Home Medications Medication Instructions Recorded Confirmed Albuterol Sulfate [Proair Hfa] 2 puff IH Q4H PRN 05/05/16 03/07/19 Aspirin 81 mg PO DAILY 05/05/16 03/07/19 Atorvastatin [Lipitor] 40 mg PO HS 05/05/16 03/07/19 Dexlansoprazole [Dexilant] 60 mg PO DAILY 09/28/17 03/07/19 Gabapentin [Neurontin] 600 mg PO TID 09/28/17 03/07/19 Losartan Potassium [Cozaar] 100 mg PO DAILY 09/28/17 03/07/19 Ranitidine HCl [Heartburn Relief] 150 mg PO HS 09/28/17 03/07/19 hydrOXYzine HCl [Hydroxyzine HCl] 50 mg PO TID PRN 09/28/17 03/07/19 Insulin Degludec [Tresiba 55 unit SQ BID 12/24/17 03/07/19 Flextouch U-200] Fluticasone Propionate Nasal 100 mcg NS DAILY PRN 03/07/19 03/07/19 [Flonase] Ivabradine HCl [Corlanor] 5 mg PO BID 03/07/19 03/07/19 Metformin HCl [Metformin ER 1,000 mg PO DAILY 03/07/19 03/07/19 Gastric] Ondansetron ODT [Zofran ODT] 8 mg SL Q8HR PRN 03/07/19 03/07/19 lamoTRIgine [Lamotrigine] 200 mg PO HS 03/07/19 03/07/19 traZODone [TraZODone] 100 mg PO HS PRN 03/07/19 03/07/19 Allergies Allergy/AdvReac Type Severity Reaction Status Date / Time morphine Allergy Hives Verified 03/07/19 12:53 tramadol Allergy Hives Verified 03/07/19 12:53 All systems ED: reviewed and negative except as stated. Review of Systems: As Per HPI Constitutional: Denies: fever, chills Cardiovascular: Reports: chest pain Respiratory: Reports: dyspnea. Denies: cough Gastrointestinal: Reports: nausea. Denies: abdominal pain, vomiting Genitourinary: Denies: dysuria, hematuria Neurological: Denies: headache, weakness Chest Pain PMH - Past Medical History Medical history: Reports: diabetes, GERD, hyperlipidemia, hypertension Surgical history: Reports: cholecystectomy, other Psychiatric history: Reports: anxiety, depression - Social History Smoking Status: Never smoker Alcohol use: Reports: none Drug use: Reports: none Physical Exam - General Limitations: no limitations General appearance: alert, in no apparent distress - Head Head exam: atraumatic, normocephalic - Eye Eye exam: Present: normal appearance, EOMI - ENT ENT exam: normal exam, normal oropharynx - Neck Neck exam: Present: normal inspection, trachea midline - Chest Chest inspection: Present: normal inspection, symmetric chest wall rise - Respiratory Respiratory exam: Present: normal lung sounds bilaterally. Absent: respiratory distress, wheezes - Cardiovascular Cardiovascular exam: Present: normal rhythm, tachycardia, normal heart sounds, other (Bilateral radial pulses are equal and palpable) - Abdominal Exam Abdominal exam: Present: soft, Non-Tender. Absent: distention - Extremities Exam Extremities exam: Present: normal inspection. Absent: tenderness, normal capillary refill, pedal edema, calf tenderness - Neurological Exam Neurological exam: Present: alert, oriented X3 - Psychiatric Psychiatric exam: Present: normal affect, normal mood - Skin Skin exam: Present: warm, dry. Absent: diaphoresis, pallor Course Vital Signs Temperature 99.0 F 03/07/19 12:51 Pulse Rate 102 03/07/19 12:51 Respiratory Rate 16 03/07/19 12:51 Blood Pressure 147/96 03/07/19 12:51 O2 Sat by Pulse Oximetry 100 03/07/19 12:51 Temperature 98.3 F 03/07/19 18:53 Pulse Rate 94 03/07/19 18:53 Respiratory Rate 16 03/07/19 18:53 Blood Pressure 125/89 03/07/19 18:53 O2 Sat by Pulse Oximetry 95 03/07/19 20:57 Oxygen Delivery Oxygen Delivery Room Air Chest Pain - MDM Narrative Medical decision making narrative: Patient is presenting with chest pain that suddenly started 2 hours prior to arrival associated with nausea, pain radiating into her right arm. Heart score is a 4 secondary to nonspecific EKG changes, risk factors. We will obtain ACS workup. Patient has no risk factors for PE but is tachycardic so D-dimer added. 15:15 Labs and imaging reviewed. Troponin less than 0.03. Patient does still has some chest pain but it is decreased. She will be admitted for ACS workup. Hospice has been paged for admission. Patient still has chest pain so nitroglycerin trial. 16:[address] Hyde who accepts admission. - Medical Records Medical records reviewed: Yes I reviewed the patient's medical records. - Lab Data Lab results reviewed: Yes I reviewed the patient's lab results. Result diagrams: 03/07/19 13:36 03/07/19 13:36 Lab Results 03/07/19 03/07/19 03/07/19 Range/Units 13:36 13:36 13:36 WBC 7.8 (4.3-11.1) K/mcL RBC 4.75 (3.82-4.97) M/mcL Hgb 13.6 (11.5-15.4) g/dL Hct 41.1 (35.3-44.9) % MCV 86.5 (83.0-100.0) fL MCH 28.6 (28.0-33.3) pg MCHC 33.1 (31.6-35.5) g/dL RDW 13.1 (11.5-14.5) % Plt Count 331 (140-400) K/mcL MPV 9.6 (9.4-12.4) fL Immature Gran % 0.1 (0-4) % Seg Neutrophils % 59.1 % Lymphocytes % 32.0 % Monocytes % 5.6 % Eosinophils % 2.6 % Basophils % 0.6 % Neutrophils # 4.6 (1.6-8.9) K/mcL Lymphocytes # 2.5 (0.6-4.6) K/mcL Monocytes # 0.4 (0.0-1.3) K/mcL Eosinophils # 0.2 (0.0-0.6) K/mcL Basophils # 0.1 (0.0-0.2) K/mcL PT 11.9 (9.4-12.1) Seconds INR 1.0 APTT 31.7 (26.0-36.0) Seconds D-Dimer (0-500) ng/mLFEU Sodium 141 (136-145) mEq/L Potassium 3.7 (3.5-5.1) mEq/L Chloride 103 (98-107) mEq/L Carbon Dioxide 23 (23-29) mEq/L BUN 16 (6-20) mg/dL Creatinine 0.63 (0.60-1.20) mg/dL Est GFR ( Amer) > 60 (> 60) Est GFR (Non-Af Amer) > 60 (> 60) BUN/Creatinine Ratio 25 (6-26) Glucose 179 H (70-105) mg/dL Est Mean Plasma Glucose mg/dl Hemoglobin A1c ( - 5.6) % Calculated Osmolality 298 (280-300) Calcium 9.3 (8.6-10.3) mg/dL Total Bilirubin 0.4 (0.3-1.0) mg/dL Direct Bilirubin 0.1 (0.0-0.2) mg/dL Indirect Bilirubin 0.3 (0.0-1.2) mg/dL AST 15 (13-39) Units/L ALT 19 (7-52) Units/L Alkaline Phosphatase 62 (34-104) Units/L Troponin I < 0.03 (< 0.04) ng/mL Serum Total Protein 7.4 (6.4-8.9) g/dL Albumin 4.6 (3.5-5.7) g/dL Globulin 2.8 (2.4-3.5) g/dL Albumin/Globulin Ratio 1.6 (1.1-2.2) Lipase 21 (11-82) Units/L 03/07/19 03/07/19 Range/Units 13:36 13:36 WBC (4.3-11.1) K/mcL RBC (3.82-4.97) M/mcL Hgb (11.5-15.4) g/dL Hct (35.3-44.9) % MCV (83.0-100.0) fL MCH (28.0-33.3) pg MCHC (31.6-35.5) g/dL RDW (11.5-14.5) % Plt Count (140-400) K/mcL MPV (9.4-12.4) fL Immature Gran % (0-4) % Seg Neutrophils % % Lymphocytes % % Monocytes % % Eosinophils % % Basophils % % Neutrophils # (1.6-8.9) K/mcL Lymphocytes # (0.6-4.6) K/mcL Monocytes # (0.0-1.3) K/mcL Eosinophils # (0.0-0.6) K/mcL Basophils # (0.0-0.2) K/mcL PT (9.4-12.1) Seconds INR APTT (26.0-36.0) Seconds D-Dimer < 215 (0-500) ng/mLFEU Sodium (136-145) mEq/L Potassium (3.5-5.1) mEq/L Chloride (98-107) mEq/L Carbon Dioxide (23-29) mEq/L BUN (6-20) mg/dL Creatinine (0.60-1.20) mg/dL Est GFR ( Amer) (> 60) Est GFR (Non-Af Amer) (> 60) BUN/Creatinine Ratio (6-26) Glucose (70-105) mg/dL Est Mean Plasma Glucose 148 mg/dl Hemoglobin A1c 6.8 H ( - 5.6) % Calculated Osmolality (280-300) Calcium (8.6-10.3) mg/dL Total Bilirubin (0.3-1.0) mg/dL Direct Bilirubin (0.0-0.2) mg/dL Indirect Bilirubin (0.0-1.2) mg/dL AST (13-39) Units/L ALT (7-52) Units/L Alkaline Phosphatase (34-104) Units/L Troponin I (< 0.04) ng/mL Serum Total Protein (6.4-8.9) g/dL Albumin (3.5-5.7) g/dL Globulin (2.4-3.5) g/dL Albumin/Globulin Ratio (1.1-2.2) Lipase (11-82) Units/L - Radiology Data Radiology results reviewed: Yes I reviewed the patient's radiology results. Chest X-Ray 03/07/19 13:00 IMPRESSION: Negative portable study. D/ / Nina Richards Cha, MD / Nina Richards Cha, MD Interpreting Provider: Nina Richards Cha, MD - EKG Data EKG attestation: Yes I reviewed and interpreted this EKG. EKG results narrative: EKG obtained at 1303 shows sinus tachycardia with heart rate 108, TN interval 16 22, QRS duration 94, QTC 580, T wave inversion in V1, V2, V3, no ST elevation, no ST depression, Q waves in lead 3, compared to old EKG on 12/24/2017 which shows no new changes. Heart Score - Score History: Moderately Suspicious EKG: Non Specific repolarisation Disturbance Age: Less than 45 Risk Factors: Equal/Greater than 3 risk factor or history of atherosclerotic disease Troponin: Less than normal limit HEART Score Total: 4 Attestation Statement - Attestation Attestation: I, Albert Bazzi, examined this patient and my medical decision-making was reviewed with the COMMUNITY NUTRITION EDUCATOR/PA/Advanced Practice Nurse/Resident Physician. I agree with the documented findings, disposition and treatment plan as described except to the extent set forth below. 38-year-old female presents emergency Department with concerns of chest pain. She reports associated nausea and lightheadedness. She denied diaphoresis. She has a history of hypertension, hyperlipidemia, diabetes. Patient denies history of previous cardiac evaluation. She is tachycardic on initial evaluation. D- dimer was negative in the emergency department. Chest x-ray did not show evid ence of acute infiltrate. EKG did not show evidence of STEMI.I reviewed the EKG with the resident and agree with the interpretation. Patient is tachycardic in the emergency department however she states that this is baseline for her. Patient will be admitted to the hospitalist for further care and evaluation.
[2019-03-07 14:07] LABS: Basophils # 0.1 K/mcL (0.0-0.2); Basophils % 0.6 %; Eosinophils # 0.2 K/mcL (0.0-0.6); Eosinophils % 2.6 %; Hematocrit 41.1 % (35.3-44.9); Hemoglobin 13.6 g/dL (11.5-15.4); Immature Granulocytes % 0.1 % (0-4); Lymphocytes # 2.5 K/mcL (0.6-4.6); Mean Corpuscular HGB Conc 33.1 g/dL (31.6-35.5); Mean Corpuscular Hemoglobin 28.6 pg (28.0-33.3); Mean Corpuscular Volume 86.5 fL (83.0-100.0); Mean Platelet Volume 9.6 fL (9.4-12.4); Monocytes # 0.4 K/mcL (0.0-1.3); Monocytes % 5.6 %; Neutrophils # 4.6 K/mcL (1.6-8.9); Platelet Count 331 K/mcL (140-400); Red Blood Count 4.75 M/mcL (3.82-4.97); Red Cell Distribution Width 13.1 % (11.5-14.5); Segmented Neutrophils % 59.1 %; White Blood Count 7.8 K/mcL (4.3-11.1)
[2019-03-07 14:17] LABS: Prothrombin Time 11.9 Seconds (9.4-12.1)
[2019-03-07 14:18] LABS: BUN/Creatinine Ratio 25 (6-26); Blood Urea Nitrogen 16 mg/dL (6-20); Calcium 9.3 mg/dL (8.6-10.3); Carbon Dioxide 23 mEq/L (23-29); Chloride 103 mEq/L (98-107); Glucose 179 mg/dL (70-105); Osmolality,Calculated 298 (280-300); Potassium 3.7 mEq/L (3.5-5.1); Sodium 141 mEq/L (136-145); Troponin I < 0.03 ng/mL (< 0.04); eGFR For African Americans > 60 (> 60); eGFR For Non-African Americans > 60 (> 60)
[2019-03-07 14:19] LABS: Activated Partial Thrombo Time 31.7 Seconds (26.0-36.0)
[2019-03-07] MEDS ORDERED: Nitroglycerin 0.4 MG TAB.SUBL SL PRN (16:20)
[2019-03-07] MEDS ORDERED: Naloxone 0.4 MG/ML INJ IVP PRN (16:38)
[2019-03-07] MEDS ORDERED: hydrOXYzine pamoate 25 MG CAPSULE PO PRN (17:04)
[2019-03-07] MEDS ORDERED: Fluticasone Propionate Nasal 50 MCG/SPRAY BOTTLE NS PRN (17:04)
[2019-03-07] MEDS ORDERED: Isovue-370 500 ML BOTTLE IVP ONE (17:07)
[2019-03-07] MEDS ORDERED: *HR* Dextrose 50 % in Water (Syg) 50 ML SYRINGE IVP PRN (17:08)
[2019-03-07] MEDS ORDERED: D5% in Water 1,000 ML IVC PRN (17:08)
[2019-03-07] MEDS ORDERED: Dextrose Gel 15 GM/37.5 ML TUBE PO PRN ×2 (17:08)
--- NOTE | 2019-03-07 17:44 | Internal Med History&Physical ---
Date of Encounter: 03/07/19 Time of Encounter: 17:00 Internal Medicine - H&P: HPI Chief complaint: Chest pain and abdominal pain History of present illness: Ms. Fonseca is a 38 year old female with pmh of CHF, hypertension, diabetes presenting with complaints of chest pain and abdominal pain of 1 day duration. Patient says she was in a car today when she experienced a sudden onset pressure like chest pain that was midsternal and radiating to the back and right arm. Pain was described as a sensation of being unable to catch her breath. She denies any fevers or chills. She also complains of a right sided abdominal pain that started around the same time. Pain is non radiating. No aggravating or relieving factors. She denies any vomiting, admits to nausea. Denies any fevers or chills In the ER, troponins were negative, EKG showed some T wave inversions but no a cute changes from an old EKG. She is being admitted for further management Past Med Surg Social Fam HX - Past Medical History Medical history: diabetes, GERD, hyperlipidemia, hypertension Additional medical history: tachycardia. frequent headaches Psychiatric history: anxiety, depression - Past Surgical History Surgical History: cholecystectomy, other Additional surgical history: tubal ligation. uterine ablation. cyst removed from Right side of head. partial liver removed - Social History Smoking Status: Never smoker Smokeless Tobacco Status: No Alcohol use: none Drug use: none - Family History Mother Living Status: Still Living Hx Family Cardiac Disorders: Yes Hx Family Respiratory Disorders: Yes (COPD) Hx Family Cancer: Yes (uterus) Father Living Status: Still Living Hx Family Cancer: Yes (bladder) Internal Medicine - H&P: Meds Albuterol Sulfate [Proair Hfa] 2 puff IH Q4H PRN 05/05/16 [History] Aspirin 81 mg PO DAILY 05/05/16 [History] Atorvastatin [Lipitor] 40 mg PO HS 05/05/16 [History] Dexlansoprazole [Dexilant] 60 mg PO DAILY 09/28/17 [History] Gabapentin [Neurontin] 600 mg PO TID 09/28/17 [History] Losartan Potassium [Cozaar] 100 mg PO DAILY 09/28/17 [History] Ranitidine HCl [Heartburn Relief] 150 mg PO HS 09/28/17 [History] hydrOXYzine HCl [Hydroxyzine HCl] 50 mg PO TID PRN 09/28/17 [History] Insulin Degludec [Tresiba Flextouch U-200] 55 unit SQ BID 12/24/17 [History] Fluticasone Propionate Nasal [Flonase] 100 mcg NS DAILY PRN 03/07/19 [History] Ivabradine HCl [Corlanor] 5 mg PO BID 03/07/19 [History] Metformin HCl [Metformin ER Gastric] 1,000 mg PO DAILY 03/07/19 [History] Ondansetron ODT [Zofran ODT] 8 mg SL Q8HR PRN 03/07/19 [History] lamoTRIgine [Lamotrigine] 200 mg PO HS 03/07/19 [History] traZODone [TraZODone] 100 mg PO HS PRN 03/07/19 [History] Allergy/AdvReac Type Severity Reaction Status Date / Time morphine Allergy Hives Verified 03/07/19 12:53 tramadol Allergy Hives Verified 03/07/19 12:53 All Systems PM: A 10-system review of systems was performed and is negative for pertinent findings except as documented above in the HPI. - Constitutional Constitutional: no chills, no fever(s), no night sweats - EENT Eyes: no change in vision, no discharge, no pain, no photophobia Ears: no ear discharge, no ear pain, no tinnitus Nose, mouth and throat: no dysphagia, no nasal discharge, no neck pain, no sore throat - Cardiovascular Cardiovascular ROS IM: chest pain, no diaphoresis, no dyspnea, no lightheadedness, no palpitations, no syncope - Respiratory Respiratory: dyspnea, no cough, no wheezing, no excessive phlegm production - Gastrointestinal Gastrointestinal: abdominal pain, no diarrhea, no hematemesis, no hematochezia, no melena, no nausea, no vomiting - Genitourinary Genitourinary: no change in urinary stream, no dysuria, no flank pain, no hematuria - Musculoskeletal Musculoskeletal ROS IM: no numbness, no tingling - Integumentary Integumentary IM: no rash, no unusual bruising - Neurological Neurological ROS: no confusion, no convulsions, no focal weakness, no numbness, no tingling, no tremor(s) - Hematologic/Lymphatic Hematologic/Lymphatic: no easy bruising - Constitutional Vitals: Temp Pulse Resp BP Pulse Ox 99.0 F 102 16 147/96 100 03/07/19 12:51 03/07/19 12:51 03/07/19 12:51 03/07/19 12:51 03/07/19 13:30 Exam: NAD Right upper quadrant tenderness to palpation - Head Head exam: Present: atraumatic, normocephalic - Eye Eye exam: Present: PERRL, conjuntiva pink, sclera anicteric Pupils: Present: PERRL - Neck Neck exam general surgery: Present: supple, trachea midline. Absent: lymphadenopathy - Respiratory Respiratory exam: Present: CTAB. Absent: accessory muscle use, rales, rhonchi, wheezes - Cardiovascular Cardiovascular exam: Present: RRR, +S1, +S2. Absent: diastolic murmur, gallop, rubs, systolic murmur - GI/Abdominal GI/Abdominal exam: Present: normal bowel sounds, soft, tenderness, no peritoneal signs. Absent: distended - Extremities Exam Extremities exam: Present: warm, radial pulses palpable and symmetrical. Absent: calf tenderness, cyanotic, pedal edema - Neurological Exam Neurological exam: Present: CN II-XII intact, oriented X3, no focal deficits. Absent: pronater drift, facial droop, speech deficit - Skin Skin exam: Present: dry, intact Internal Med - H&P Results - Labs CBC & Chem 7: 03/07/19 13:36 03/07/19 13:36 Labs: Short CBC 03/07/19 Range/Units 13:36 WBC 7.8 (4.3-11.1) K/mcL Hgb 13.6 (11.5-15.4) g/dL Hct 41.1 (35.3-44.9) % Plt Count 331 (140-400) K/mcL Neutrophils # 4.6 (1.6-8.9) K/mcL BMP 03/07/19 13:36 Sodium 141 Potassium 3.7 Chloride 103 Carbon Dioxide 23 BUN 16 Creatinine 0.63 Glucose 179 H Calcium 9.3 Cardiac Enzymes 03/07/19 Range/Units 13:36 Troponin I < 0.03 (< 0.04) ng/mL - Impressions ITS Impressions Chest X-Ray 03/07/19 13:00 IMPRESSION: Negative portable study. D/ / Nina Richards Cha, MD / Nina Richards Cha, MD Interpreting Provider: Nina Richards Cha, MD - Assessment and Plan (1) Chest pain Current Visit: Yes Status: Acute Assessment and plan: Patient comes in with chest pain of 1 day duration. Has risk factors for CAD such as obesity, htn, diabetes Will obtain echo and stress test in am. Continue aspirin and statin Qualifiers: Chest pain type: unspecified Qualified Code(s): R07.9 - Chest pain, unspecified (2) Abdominal pain Current Visit: Yes Status: Acute Assessment and plan: Has abdominal pain of 1 day duration. Unclear etiology. Reportedly had cholecystectomy and partial liver lobectomy for nodules Obtain LFTs, CT abdomen and pelvis, lipase Qualifiers: Abdominal location: generalized Qualified Code(s): R10.84 - Generalized abdominal pain (3) DMII (diabetes mellitus, type 2) Current Visit: Yes Status: Chronic Assessment and plan: Continue insulin and monitor fingersticks Qualifiers: Diabetes mellitus correction insulin use: with correction use Diabetes mellitus complication status: without complication Qualified Code(s): E11.9 - Type 2 diabetes mellitus without complications; Z79.4 - skilled nursing (current) use of insulin (4) DVT prophylaxis Current Visit: Yes Status: Acute Assessment and plan: Heparin sc - Time Spent With Patient Total time spent is greater than 50% in coordination of care (as documented) at patient's floor/unit and/or counseling patient:
[2019-03-07 17:51] LABS: Estimated Average Glucose 148 mg/dl
[2019-03-07] MEDS: Aspirin 81 MG TAB.CHEW PO SCH (18:07)
[2019-03-07 18:09] LABS: Alanine Aminotransferase 19 Units/L (7-52); Albumin 4.6 g/dL (3.5-5.7); Albumin/Globulin Ratio 1.6 (1.1-2.2); Alkaline Phosphatase 62 Units/L (34-104); Aspartate Amino Transferase 15 Units/L (13-39); Bilirubin,Direct 0.1 mg/dL (0.0-0.2); Bilirubin,Indirect 0.3 mg/dL (0.0-1.2); Bilirubin,Total 0.4 mg/dL (0.3-1.0); Globulin 2.8 g/dL (2.4-3.5); Lipase 21 Units/L (11-82); Total Protein 7.4 g/dL (6.4-8.9)
[2019-03-07] MEDS: *HR* Heparin 5,000 UNIT/ML VIAL SQ SCH (18:09)
[2019-03-07] MEDS: Famotidine 20 MG TABLET PO SCH (20:38)
[2019-03-07] MEDS: lamoTRIgine 100 MG TABLET PO SCH (20:38)
[2019-03-07] MEDS: Gabapentin 300 MG CAPSULE PO SCH (20:38)
[2019-03-07] MEDS: Insulin DETEMIR 100 UNIT/ML X5UNITS SQ SCH (20:39)
[2019-03-07] MEDS: IVABRADINE HCL 5 MG PO SCH (20:39)
[2019-03-07] MEDS: traZODone 50 MG TABLET PO PRN (20:42)
[2019-03-07] MEDS ORDERED: INSULIN DEGLUDEC 55 UNIT SQ SCH (21:00)
[2019-03-07] MEDS ORDERED: Acetaminophen 325 MG TABLET PO ONE (23:22)
[2019-03-08 04:29] LABS: Basophils # 0.1 K/mcL (0.0-0.2); Basophils % 0.8 %; Eosinophils # 0.2 K/mcL (0.0-0.6); Eosinophils % 2.7 %; Hematocrit 36.1 % (35.3-44.9); Hemoglobin 12.3 g/dL (11.5-15.4); Immature Granulocytes % 0.3 % (0-4); Lymphocytes # 3.5 K/mcL (0.6-4.6); Lymphocytes % 45.1 %; Mean Corpuscular HGB Conc 34.1 g/dL (31.6-35.5); Mean Corpuscular Hemoglobin 29.1 pg (28.0-33.3); Mean Corpuscular Volume 85.5 fL (83.0-100.0); Mean Platelet Volume 9.8 fL (9.4-12.4); Monocytes # 0.5 K/mcL (0.0-1.3); Neutrophils # 3.5 K/mcL (1.6-8.9); Platelet Count 296 K/mcL (140-400); Red Blood Count 4.22 M/mcL (3.82-4.97); Red Cell Distribution Width 13.2 % (11.5-14.5); Segmented Neutrophils % 45.1 %; White Blood Count 7.7 K/mcL (4.3-11.1)
[2019-03-08 04:46] LABS: Chol/HDL Ratio 3.4 (0-4.9); Cholesterol 106 mg/dL (< 200); HDL Cholesterol 31 mg/dL (40-59); Triglycerides 438 mg/dL (< 150)
[2019-03-08 04:48] LABS: BUN/Creatinine Ratio 23 (6-26); Blood Urea Nitrogen 13 mg/dL (6-20); Calcium 9.1 mg/dL (8.6-10.3); Carbon Dioxide 24 mEq/L (23-29); Chloride 103 mEq/L (98-107); Glucose 135 mg/dL (70-105); Magnesium 1.7 mg/dL (1.6-2.6); Osmolality,Calculated 288 (280-300); Phosphorous 3.9 mg/dL (2.7-4.5); Potassium 3.4 mEq/L (3.5-5.1); Sodium 138 mEq/L (136-145); eGFR For African Americans > 60 (> 60); eGFR For Non-African Americans > 60 (> 60)
[2019-03-08] MEDS: *HR* Heparin 5,000 UNIT/ML VIAL SQ SCH ×2 (05:48→17:41)
[2019-03-08] MEDS: Regadenoson 0.4 MG/5 ML SYRINGE IVP ONE ×2 (07:37→07:42)
[2019-03-08] MEDS: Insulin LISPRO 300 UNITS/3 ML VIAL SQ SCH ×3 (08:01→17:42)
--- NOTE | 2019-03-08 08:54 | Internal Med Progress Note ---
Hospitalist Progress Note - Encounter Date of Encounter: 03/08/19 Time of Encounter: 10:00 - Subjective Interval History: No acute events overnight - Exam Vitals: Temp Pulse Resp BP Pulse Ox 98.1 F 80 16 105/48 96 03/08/19 07:12 03/08/19 07:12 03/08/19 07:12 03/08/19 07:14 03/08/19 07:12 Exam: General appearance: Present: A&O X 3, no acute distress Head exam: Present: normocephalic Respiratory exam: Present: CTAB. Absent: accessory muscle use, rales, rhonchi, wheezes Cardiovascular exam: Present: RRR, +S1, +S2. Absent: diastolic murmur, gallop, rubs, systolic murmur GI/Abdominal exam: Soft, NT, ND, +BS Extremities exam: Absent: pedal edema Neurological exam: Alert to person and place - Assessment and Plan (1) Chest pain Current Visit: Yes Status: Acute Assessment and Plan: Patient comes in with chest pain of 1 day duration. Has risk factors for CAD such as obesity, htn, diabetes Will obtain echo and stress test in am. Continue aspirin and statin Patient will complete 2 day stress test. completed first part today (2) Abdominal pain Current Visit: Yes Status: Acute Assessment and Plan: Has abdominal pain of 1 day duration. Unclear etiology. Reportedly had cholecystectomy and partial liver lobectomy for nodules CT abdomen showed no acute findings other than ovarian cyst. Outpatient f/u (3) DMII (diabetes mellitus, type 2) Current Visit: Yes Status: Chronic Assessment and Plan: Continue insulin and monitor fingersticks (4) Ovarian cyst Current Visit: Yes Status: Acute Assessment and Plan: CT abdomen showed ovarian cyst. Outpatient f/u with safemaker (5) DVT prophylaxis Current Visit: Yes Status: Acute Assessment and Plan: Heparin sc - Time Spent with Patient Total time spent is greater than 50% in coordination of care (as documented) at patient's floor/unit and/or counseling patient: Internal Medicine: Result - Labs CBC & Chem 7: 03/08/19 03:41 03/08/19 03:41 Labs: Short CBC 03/07/19 03/08/19 Range/Units 13:36 03:41 WBC 7.8 7.7 (4.3-11.1) K/mcL Hgb 13.6 12.3 (11.5-15.4) g/dL Hct 41.1 36.1 (35.3-44.9) % Plt Count 331 296 (140-400) K/mcL Neutrophils # 4.6 3.5 (1.6-8.9) K/mcL BMP 03/07/19 03/08/19 13:36 03:41 Sodium 141 138 Potassium 3.7 3.4 L Chloride 103 103 Carbon Dioxide 23 24 BUN 16 13 Creatinine 0.63 0.57 L Glucose 179 H 135 H Calcium 9.3 9.1 Cardiac Enzymes 03/07/19 03/07/19 03/08/19 Range/Units 13:36 21:37 03:41 Troponin I < 0.03 < 0.03 < 0.03 (< 0.04) ng/mL Liver Function 03/07/19 Range/Units 13:36 Total Bilirubin 0.4 (0.3-1.0) mg/dL Direct Bilirubin 0.1 (0.0-0.2) mg/dL AST 15 (13-39) Units/L ALT 19 (7-52) Units/L Alkaline Phosphatase 62 (34-104) Units/L Albumin 4.6 (3.5-5.7) g/dL - ABG Interpretation ABG results: PT/INR, D-dimer PT 11.9 Seconds (9.4-12.1) 03/07/19 13:36 D-Dimer < 215 ng/mLFEU (0-500) 03/07/19 13:36 - Impressions Impressions Chest X-Ray 03/07/19 13:00 IMPRESSION: Negative portable study. D/ / Nina Richards Cha, MD / Nina Richards Cha, MD Interpreting Provider: Nina Richards Cha, MD Abdomen/Pelvis CT 03/07/19 21:00 IMPRESSION: No acute abdominopelvic findings. Stable cluster of nodules in the left lower lobe. Follow-up in December 2019 advised to document 2-year stability. 4.7 indeterminate ovarian cyst in the left adnexa. Prompt ultrasound follow-up is advised. D/ / 03/07/2019 21:57:10 Jonathan Byrd / maykel Interpreting Provider: Jonathan Byrd Consult Discharge Plan - Plan Referrals: Millie Rider MD [Primary Care Provider] - (1) Chest pain Qualifiers: Chest pain type: unspecified Qualified Code(s): R07.9 - Chest pain, unspecified (2) Abdominal pain Qualifiers: Abdominal location: generalized Qualified Code(s): R10.84 - Generalized abdominal pain (3) DMII (diabetes mellitus, type 2) Qualifiers: Diabetes mellitus prison insulin use: with prison use Diabetes mellitus complication status: without complication Qualified Code(s): E11.9 - Type 2 diabetes mellitus without complications; Z79.4 - buttermaker helper (current) use of insulin (4) Ovarian cyst Qualifiers: Qualified Code(s): N83.201 - Unspecified ovarian cyst, right side
[2019-03-08] MEDS: Gabapentin 300 MG CAPSULE PO SCH ×3 (09:08→21:00)
[2019-03-08] MEDS: Aspirin 81 MG TAB.CHEW PO SCH (09:09)
[2019-03-08] MEDS: IVABRADINE HCL 5 MG PO SCH ×2 (09:10→21:01)
[2019-03-08] MEDS: Insulin DETEMIR 100 UNIT/ML X5UNITS SQ SCH ×2 (09:12→20:55)
--- NOTE | 2019-03-08 13:48 | Electrocardiograph Report ---
[address] [address] Test Date: 2019-03-07 Pat Name: Stephanie Fonseca Department: EXAM4 Room: 3B46 Gender: F [employer]: : 1980 Requested By: Albert Bazzi Order Number: [id number] Reading MD: Doreen Valdez Measurements Intervals [place] Rate: 108 P: 55 NC: 162 QRS: 59 QRSD: 94 T: -1 QT: 379 QTc: 508 Interpretive Statements Sinus tachycardia Minimal ST elevation, inferior leads Poor R wave progression Borderline prolonged QT interval Electronically Signed On 03-08-2019 13:47:04 EDT by Doreen Valdez
[2019-03-08] MEDS: traZODone 50 MG TABLET PO PRN (21:00)
[2019-03-08] MEDS: lamoTRIgine 100 MG TABLET PO SCH (21:00)
[2019-03-08] MEDS: Famotidine 20 MG TABLET PO SCH (21:01)
[2019-03-08] MEDS ORDERED: *HR* Promethazine 25 MG/ML VIAL IVP ONE (23:00)
[2019-03-08] MEDS: Acetaminophen 325 MG TABLET PO PRN (23:10)
[2019-03-09 05:28] LABS: Basophils # 0.1 K/mcL (0.0-0.2); Basophils % 0.9 %; Eosinophils # 0.2 K/mcL (0.0-0.6); Eosinophils % 3.6 %; Hematocrit 37.2 % (35.3-44.9); Hemoglobin 12.5 g/dL (11.5-15.4); Immature Granulocytes % 0.3 % (0-4); Lymphocytes % 44.7 %; Mean Corpuscular HGB Conc 33.6 g/dL (31.6-35.5); Mean Corpuscular Hemoglobin 28.3 pg (28.0-33.3); Mean Corpuscular Volume 84.2 fL (83.0-100.0); Mean Platelet Volume 9.9 fL (9.4-12.4); Monocytes # 0.4 K/mcL (0.0-1.3); Monocytes % 6.1 %; Platelet Count 285 K/mcL (140-400); Red Blood Count 4.42 M/mcL (3.82-4.97); Red Cell Distribution Width 12.8 % (11.5-14.5); Segmented Neutrophils % 44.4 %; White Blood Count 6.7 K/mcL (4.3-11.1)
[2019-03-09 05:45] LABS: BUN/Creatinine Ratio 20 (6-26); Blood Urea Nitrogen 12 mg/dL (6-20); Carbon Dioxide 24 mEq/L (23-29); Chloride 103 mEq/L (98-107); Glucose 113 mg/dL (70-105); Osmolality,Calculated 285 (280-300); Potassium 3.5 mEq/L (3.5-5.1); Sodium 137 mEq/L (136-145); eGFR For African Americans > 60 (> 60); eGFR For Non-African Americans > 60 (> 60)
[2019-03-09] MEDS: *HR* Heparin 5,000 UNIT/ML VIAL SQ SCH ×2 (07:50→17:28)
[2019-03-09] MEDS: IVABRADINE HCL 5 MG PO SCH ×2 (08:03→21:11)
[2019-03-09] MEDS: Gabapentin 300 MG CAPSULE PO SCH ×3 (08:03→21:10)
[2019-03-09] MEDS: Aspirin 81 MG TAB.CHEW PO SCH (08:04)
[2019-03-09] MEDS: Insulin LISPRO 300 UNITS/3 ML VIAL SQ SCH ×3 (08:04→17:29)
[2019-03-09] MEDS: Insulin DETEMIR 100 UNIT/ML X5UNITS SQ SCH ×2 (08:10→21:09)
[2019-03-09] MEDS: Acetaminophen 325 MG TABLET PO PRN (08:10)
--- NOTE | 2019-03-09 10:17 | Discharge Summary ---
Date of Encounter: 03/10/19 Time of Encounter: 10:13 - Discharge Diagnosis (1) Chest pain Priority: Primary Status: Acute Qualifiers: Chest pain type: unspecified Qualified Code(s): R07.9 - Chest pain, unspecified (2) DMII (diabetes mellitus, type 2) Priority: Secondary Status: Chronic Qualifiers: Diabetes mellitus termite treater insulin use: with termite treater use Diabetes mellitus complication status: without complication Qualified Code(s): E11.9 - Type 2 diabetes mellitus without complications; Z79.4 - FPC (current) use of insulin (3) Abdominal pain Priority: Secondary Status: Chronic Qualifiers: Abdominal location: generalized Qualified Code(s): R10.84 - Generalized abdominal pain (4) DVT prophylaxis Priority: Secondary Status: Acute (5) Ovarian cyst Priority: Secondary Status: Chronic Qualifiers: Qualified Code(s): N83.201 - Unspecified ovarian cyst, right side (6) Gastroparesis Priority: Secondary Status: Chronic (7) HTN (hypertension) Priority: Secondary Status: Chronic Qualifiers: Hypertension type: essential hypertension Qualified Code(s): I10 - Essential (primary) hypertension (8) IBS (irritable bowel syndrome) Priority: Secondary Status: Chronic Qualifiers: Irritable bowel syndrome type: with both diarrhea and constipation Qualified Code(s): K58.2 - Mixed irritable bowel syndrome Hospital course: Ms. Fonseca is a 38 year old female pmh of CHF, hypertension, diabetes presenting with complaints of chest pain and abdominal pain of 1 day duration. Patient reported having chronic intermittent abdominal pain due due to diabetes gastroparesis. Patient admitted to hospital due to chest pain rule out ACS. Underwent pharmacologic stress test: Negative for ischemia. TTE: Unremarkable. But patient continue to report intermittent chest pain. cardiology consulted. Patient underwent [facility] Cath completed. LVEF 60%. rca normal. LCA left dominant,normal left coronary artery. Mild diastolic dysfunction Abdo/pelvic CT done: IMPRESSION: No acute abdominopelvic findings. Stable cluster of nodules in the left lower lobe. Follow-up in December 2019. advised to document 2-year stability. 4.7 indeterminate ovarian cyst in the left adnexa. Prompt ultrasound follow-up is advised. Patient is hemodynamically stable to be discharged home. - Time Spent with Patient Total time spent providing and/or coordinating discharge services: Time spent: Greater than 30 minutes (35) - Discharge Medications Prescriptions: New Nitroglycerin 0.4 mg SL Q5MPRN PRN 30 Days #30 tab.subl PRN Reason: Chest Pain Continued Atorvastatin [Lipitor] 40 mg PO HS Aspirin 81 mg PO DAILY Albuterol Sulfate [Proair Hfa] 2 puff IH Q4H PRN PRN Reason: Shortness Of Breath Dexlansoprazole [Dexilant] 60 mg PO DAILY Gabapentin [Neurontin] 600 mg PO TID hydrOXYzine HCl [Hydroxyzine HCl] 50 mg PO TID PRN PRN Reason: Anxiety Losartan Potassium [Cozaar] 100 mg PO DAILY Ranitidine HCl [Heartburn Relief] 150 mg PO HS Insulin Degludec [Tresiba Flextouch U-200] 55 unit SQ BID Fluticasone Propionate Nasal [Flonase] 100 mcg NS DAILY PRN PRN Reason: allergies Ivabradine HCl [Corlanor] 5 mg PO BID lamoTRIgine [Lamotrigine] 200 mg PO HS Metformin HCl [Metformin ER Gastric] 1,000 mg PO DAILY Ondansetron ODT [Zofran ODT] 8 mg SL Q8HR PRN PRN Reason: Nausea traZODone [TraZODone] 100 mg PO HS PRN PRN Reason: Sleep Home Medications: Albuterol Sulfate [Proair Hfa] 2 puff IH Q4H PRN 05/05/16 [History] Aspirin 81 mg PO DAILY 05/05/16 [History] Atorvastatin [Lipitor] 40 mg PO HS 05/05/16 [History] Dexlansoprazole [Dexilant] 60 mg PO DAILY 09/28/17 [History] Gabapentin [Neurontin] 600 mg PO TID 09/28/17 [History] Losartan Potassium [Cozaar] 100 mg PO DAILY 09/28/17 [History] Ranitidine HCl [Heartburn Relief] 150 mg PO HS 09/28/17 [History] hydrOXYzine HCl [Hydroxyzine HCl] 50 mg PO TID PRN 09/28/17 [History] Insulin Degludec [Tresiba Flextouch U-200] 55 unit SQ BID 12/24/17 [History] Fluticasone Propionate Nasal [Flonase] 100 mcg NS DAILY PRN 03/07/19 [History] Ivabradine HCl [Corlanor] 5 mg PO BID 03/07/19 [History] Metformin HCl [Metformin ER Gastric] 1,000 mg PO DAILY 03/07/19 [History] Ondansetron ODT [Zofran ODT] 8 mg SL Q8HR PRN 03/07/19 [History] lamoTRIgine [Lamotrigine] 200 mg PO HS 03/07/19 [History] traZODone [TraZODone] 100 mg PO HS PRN 03/07/19 [History] Nitroglycerin 0.4 mg SL Q5MPRN PRN 30 Days #30 tab.subl 03/09/19 [Rx] Allergies/Adverse Reactions: Allergy/AdvReac Type Severity Reaction Status Date / Time morphine Allergy Hives Verified 03/07/19 12:53 tramadol Allergy Hives Verified 03/07/19 12:53 Date of admission: 03/07/19 16:32 Primary care physician: Millie Rider MD Consults: 03/09/19 09:13 Consult to Cardiology [CONS] Routine Comment: Consulting Provider: Cardiology Jessika Reason for Consult: persistent chest pain. negative stress test Call Completed: No - Constitutional Vitals: Temp Pulse Resp BP Pulse Ox 98.5 F 76 16 120/82 96 03/09/19 06:31 03/09/19 06:31 03/09/19 06:31 03/09/19 06:31 03/09/19 06:31 Exam: Vitals: Reviewed General: Alert and oriented x4. In no distress. Skin: Normal color, no rash, no lesions. HEENT: EOM, pupils equal, round and reactive. Cardiovascular: RRR, normal S1 & S2, no rubs, murmurs or gallops. Lungs: CTA b/l, no wheezes or crackles. Abdomen: Obese, soft, non-tender, no rigidity. Extremities: No deformity, no edema or tenderness, no joint swelling or clubbing. Neurological: Normal cognition and motor skills. Rest of the physical exam is non contributory - Patient Status Disposition: Home, Self-Care Condition: Good Functional capacity at discharge: independent ambulation Overall status at discharge: patient is progressing back to baseline - Discharge Instructions Instructions: Nitroglycerin (By mouth), Chest Pain (DC) Follow Up With: Millie Rider MD [Primary Care Provider] - 03/18/19 10:00 am - Diet and Activity Activity: resume usual activities as tolerated Diet: diabetic diet
--- NOTE | 2019-03-09 14:24 | Cardiology Consult Note ---
<Bebo Cruz A - Last Filed: 03/09/19 15:41> Date of Encounter: 03/09/19 Time of Encounter: 14:00 Assessment and Plan (1) Chest pain Current Visit: Yes Status: Acute 1. Chest pain 8/10 currently unrelieved; Troponins negative x 3. Ordered Stat troponin completed negative. 2. Echo completed normal with EF 60-65%. Normal LV chamber size, wall thickness and function. Indeterminate diastolic function. Normal right ventricular structure and function. No evidence of pulmonary hypertension. No significant valvular dysfunction. [place]MA. 3. Stress test completed no ischemia or infarct on perfusion study. 4. Previous concern for non-specific ST changes on EKG; Stat EKG completed normal S.R with no ischemic changes noted. 5. On ASA, atorvastatin, ARB, continue. Will add imdur, BB. 6. Discussed and reviewed with Dr. Ahn, and the patient. Patient understands the risks associated with possible LHC. Plan is for possible LHC in a.m. if symptoms persist. Will change diet and make NPO a/f midnight. Qualifiers: Chest pain type: unspecified Qualified Code(s): R07.9 - Chest pain, unspecified Discussion w patient/family: The assessment and plan as outlined above was discussed with the patient and/or family members who expressed understanding and agreement. All questions were answered. Thank you for involving us in the care of your patient. Please call with any questions. History of Present Illness Consult date: 03/09/19 Consult reason: chest pain Chief complaint: chest pain History of present illness: Ms. Fonseca is a 38 year-old female with PMH of DM, GERD, HLD, HTN (sees Dr. Owusu iron piler in [place]). Presents with sudden onset constant chest pain midsternal 8/10 radiated to right arm vs. right-sided non-radiating abdominal pain. Admits to increased SOB over last few days with nausea. Denies fever, chills, vomiting, palpitations, diaphoresis. Denies alleviating/aggravating factors. Currently states chest pain is unrelieved with mild SOB. Past Med Surg Social Fam HX - Past Medical History Attestation: Yes The following information was validated with the patient. Source: patient Medical history: diabetes, GERD, hyperlipidemia, hypertension Additional medical history: tachycardia. frequent headaches Psychiatric history: anxiety, depression - Past Surgical History Surgical History: cholecystectomy, other Additional surgical history: tubal ligation. uterine ablation. cyst removed from Right side of head. partial liver removed. gall bladder removed. - Social History Smoking Status: Never smoker Smokeless Tobacco Status: No Alcohol use: none Drug use: none - Family History Mother Living Status: Still Living Hx Family Cardiac Disorders: Yes Hx Family Respiratory Disorders: Yes (COPD) Hx Family Cancer: Yes (uterus) Father Living Status: Still Living Hx Family Cancer: Yes (bladder) Medications and Allergies Albuterol Sulfate [Proair Hfa] 2 puff IH Q4H PRN 05/05/16 [History] Aspirin 81 mg PO DAILY 05/05/16 [History] Atorvastatin [Lipitor] 40 mg PO HS 05/05/16 [History] Dexlansoprazole [Dexilant] 60 mg PO DAILY 09/28/17 [History] Gabapentin [Neurontin] 600 mg PO TID 09/28/17 [History] Losartan Potassium [Cozaar] 100 mg PO DAILY 09/28/17 [History] Ranitidine HCl [Heartburn Relief] 150 mg PO HS 09/28/17 [History] hydrOXYzine HCl [Hydroxyzine HCl] 50 mg PO TID PRN 09/28/17 [History] Insulin Degludec [Tresiba Flextouch U-200] 55 unit SQ BID 12/24/17 [History] Fluticasone Propionate Nasal [Flonase] 100 mcg NS DAILY PRN 03/07/19 [History] Ivabradine HCl [Corlanor] 5 mg PO BID 03/07/19 [History] Metformin HCl [Metformin ER Gastric] 1,000 mg PO DAILY 03/07/19 [History] Ondansetron ODT [Zofran ODT] 8 mg SL Q8HR PRN 03/07/19 [History] lamoTRIgine [Lamotrigine] 200 mg PO HS 03/07/19 [History] traZODone [TraZODone] 100 mg PO HS PRN 03/07/19 [History] Nitroglycerin 0.4 mg SL Q5MPRN PRN 30 Days #30 tab.subl 03/09/19 [Rx] Allergy/AdvReac Type Severity Reaction Status Date / Time morphine Allergy Hives Verified 03/07/19 12:53 tramadol Allergy Hives Verified 03/07/19 12:53 All Systems Review: The remainder of the systems were reviewed and are negative - Constitutional Constitutional: fatigue, headache(s) - Cardiovascular Cardiovascular: as per HPI, no leg edema, no lightheadedness, no palpitations, no rapid heart rate Physical Examination Vital Signs, Last 4 Hours Temp Pulse Resp BP Pulse Ox 03/09/19 11:17 98.5 F 73 16 124/77 94 General: Conversant, No Apparent Distress HEENT: Atraumatic, Normocephaly, Mucus Membranes Moist Neck: No JVD, Normal carotid pulses Cardiac: Reg Rate and Rhythm, Normal S1 and S2, No Murmur Lungs: Normal Breath Sounds, No Wheeze, Rales, Rhonchi Neuro: Alert and responsive, No focal deficits noted Abdomen: Soft, Non-Tender Skin: No rashes noted on visualized skin Musculoskeletal: No Chest Wall Tenderness Extremities: No Clubbing, No Cyanosis, No Edema, Normal Pulses Results 03/09/19 04:21 03/09/19 04:21 Lab Results 03/09/19 03/09/19 04:21 04:21 WBC 6.7 Hgb 12.5 Hct 37.2 Plt Count 285 Sodium 137 Potassium 3.5 Chloride 103 Carbon Dioxide 24 BUN 12 Creatinine 0.60 Glucose 113 H Calcium 9.0 Laboratory Tests 03/07/19 03/07/19 03/08/19 13:36 21:37 03:41 Troponin I < 0.03 < 0.03 < 0.03 Impressions ITS Impressions Chest X-Ray 03/07/19 13:00 IMPRESSION: Negative portable study. D/ / Nina Richards Cha, MD / Nina Richards Cha, MD Interpreting Provider: Nina Richards Cha, MD Abdomen/Pelvis CT 03/07/19 21:00 IMPRESSION: No acute abdominopelvic findings. Stable cluster of nodules in the left lower lobe. Follow-up in December 2019 advised to document 2-year stability. 4.7 indeterminate ovarian cyst in the left adnexa. Prompt ultrasound follow-up is advised. D/ / 03/07/2019 21:57:10 Jonathan Byrd / maykel Interpreting Provider: Jonathan Byrd Echocardiogram 03/08/19 16:41 Impressions: LVEF 60-65%. Normal LV chamber size, wall thickness and function. Indeterminate diastolic function. Normal right ventricular structure and function. No evidence of pulmonary hypertension. No significant valvular dysfunction. Left Ventricular Wall Motion: Rest Echo Findings All wall segments showed normal motion. Regadenoson Nuclear 2 day Indications: Chest Pain Impression: No ischemia or infarct on perfusion study. Stress LVEF >70%. Pharmacologic stress ECG non-diagnostic for ischemia. Low risk study. Moderate to severe chest pain before, during and after stress, clinical correlation. Active Medications Acetaminophen (Tylenol) 650 mg PO Q6HR PRN PRN Reason: Analgesia Stop: 09/07/19 08:49 Last Admin: 03/09/19 08:10 Dose: 650 mg Documented by: Aspirin (Aspirin) 81 mg PO DAILY [facility] Stop: 09/06/19 16:41 Last Admin: 03/09/19 08:04 Dose: 81 mg Documented by: Atorvastatin Calcium (Lipitor) 40 mg PO HS [facility] Stop: 09/06/19 21:01 Last Admin: 03/08/19 21:00 Dose: 40 mg Documented by: Cyclobenzaprine HCl (Flexeril) 10 mg PO TID PRN PRN Reason: Spasms Stop: 09/07/19 11:47 Dextrose/Water (Dextrose 50% (Syg)) 25 ml IVP AD PRN PRN Reason: Hypoglycemia Stop: 09/06/19 17:09 Famotidine (Pepcid) 20 mg PO HS [facility] Stop: 09/06/19 21:01 Last Admin: 03/08/19 21:01 Dose: 20 mg Documented by: Fluticasone Propionate (Flonase) 100 mcg NS DAILY PRN; Protocol PRN Reason: allergies Stop: 09/06/19 17:05 Gabapentin (Neurontin) 600 mg PO TID [facility] Stop: 09/06/19 21:01 Last Admin: 03/09/19 14:01 Dose: 600 mg Documented by: Glucagon (Glucagen) 1 mg IM ONCE PRN PRN Reason: Hypoglycemia Stop: 09/06/19 17:09 Glucose (Gluctose) 15 gm PO ONCE PRN PRN Reason: Hypoglycemia Stop: 09/06/19 17:09 Glucose (Gluctose) 30 gm PO ONCE PRN PRN Reason: Hypoglycemia Stop: 09/06/19 17:09 Heparin Sodium (Porcine) (Heparin) 5,000 unit SQ Q12HCO [facility]; Protocol Stop: 09/06/19 18:01 Last Admin: 03/09/19 07:50 Dose: Not Given Documented by: Hydroxyzine Pamoate (Vistaril) 50 mg PO TID PRN PRN Reason: Anxiety Dextrose (Dextrose 5%) 1,000 mls @ 100 mls/hr IVC .Q10H PRN PRN Reason: HYPOGLYCEMIA Stop: 09/06/19 17:09 Insulin Detemir (Levemir) 55 unit SQ BID [facility] Stop: 09/06/19 21:01 Last Admin: 03/09/19 08:10 Dose: 55 unit Documented by: Insulin Human Lispro (Humalog) 0 units SQ TIDAC [facility]; Protocol Stop: 09/07/19 07:31 Last Admin: 03/09/19 12:26 Dose: Not Given Documented by: Lamotrigine (Lamictal) 200 mg PO HS [facility] Stop: 09/06/19 21:01 Last Admin: 03/08/19 21:00 Dose: 200 mg Documented by: Losartan Potassium (Cozaar) 100 mg PO DAILY [facility] Stop: 09/07/19 09:01 Last Admin: 03/09/19 08:04 Dose: 100 mg Documented by: Naloxone HCl (Narcan) 0.4 mg IVP Q2MPRN PRN PRN Reason: SEE COMMENTS Stop: 09/06/19 16:39 Nitroglycerin (Nitroglycerin) 0.4 mg SL Q5MPRN PRN PRN Reason: Chest Pain Stop: 09/06/19 16:21 Omeprazole (Prilosec) 40 mg PO DAILY [facility] Stop: 09/07/19 09:01 Last Admin: 03/09/19 08:03 Dose: 40 mg Documented by: Oxycodone HCl (Oxycodone Oral Conc) 5 mg SL Q6HR PRN; Protocol PRN Reason: Chest Pain Stop: 09/07/19 11:46 Last Admin: 03/09/19 04:34 Dose: 5 mg Documented by: Pharmacy Profile Note (Patient Taking Own Medication) 0 each PO BID [facility] Stop: 09/06/19 21:01 Last Admin: 03/09/19 08:03 Dose: 1 each Documented by: Trazodone HCl (Trazodone) 100 mg PO HS PRN PRN Reason: Sleep Stop: 09/06/19 17:05 Last Admin: 03/08/19 21:00 Dose: 100 mg Documented by: - Imaging and Cardiology Chest Xray: report reviewed Stress Test: report reviewed Echo: report reviewed - EKG Interpretation EKG results cardiology: personally reviewed Consult Discharge Plan - Plan Referrals: Millie Rider MD [Primary Care Provider] - 03/18/19 10:00 am Prescriptions: Nitroglycerin 0.4 mg SL Q5MPRN PRN 30 Days #30 tab.subl PRN Reason: Chest Pain CHADS2-VASC Score - Score Age: Less than 65 Sex: Female CHF History: No Hypertension history: Yes Stroke/TIA/Thromboembolism Hx: No Vascular disease history: No Diabetes history: Yes Score: 3 HAS-BLED Score - Score Medication usage predisposing to bleeding: Antiplatelet agents, NSAIDs, Anticoagulants Score: 1 <Hardeep Ahn - Last Filed: 03/10/19 13:43> Date of Encounter: 03/10/19 - Attending Attestation I have personally performed a face to face evaluation on this patient. I have reviewed and agree with the care plan. History and Exam by me shows: 38-year-old female with atypical type chest pain multiple cardiac risk factors and negative stress test presents once again with ongoing 8 out of 10 retrosternal chest pain. Risks benefits and alternatives of a LHC were discussed patient and she agrees to proceed. Possible false negative stress test Assessment and Plan Discussion w patient/family: The assessment and plan as outlined above was discussed with the patient and/or family members who expressed understanding and agreement. All questions were answered. Thank you for involving us in the care of your patient. Please call with any questions. History of Present Illness History of present illness: Ms. Fonseca is a 38 year old female All Systems Review: The remainder of the systems were reviewed and are negative Physical Examination Vital Signs, Last 4 Hours Temp Pulse Resp Pulse Ox 03/10/19 11:50 98.1 F 68 16 95 Results 03/09/19 04:21 03/10/19 10:09 Lab Results 03/09/19 03/10/19 14:04 10:09 Sodium 138 Potassium 3.7 Chloride 102 Carbon Dioxide 27 BUN 13 Creatinine 0.57 L Glucose 186 H Calcium 9.3 Troponin I < 0.03
[2019-03-09] MEDS: lamoTRIgine 100 MG TABLET PO SCH (21:09)
[2019-03-09] MEDS: Famotidine 20 MG TABLET PO SCH (21:10)
[2019-03-09] MEDS: traZODone 50 MG TABLET PO PRN (21:10)
[2019-03-10] MEDS: *HR* Heparin 5,000 UNIT/ML VIAL SQ SCH (05:58)
[2019-03-10] MEDS: Aspirin 81 MG TAB.CHEW PO SCH (07:56)
[2019-03-10] MEDS: Gabapentin 300 MG CAPSULE PO SCH ×2 (07:56→14:57)
[2019-03-10] MEDS: Insulin LISPRO 300 UNITS/3 ML VIAL SQ SCH ×2 (08:00→12:23)
[2019-03-10] MEDS: IVABRADINE HCL 5 MG PO SCH (08:03)
--- NOTE | 2019-03-10 09:56 | Event Note ---
Date of Encounter: 03/10/19 Time of Encounter: 09:00 - Cardiology Event Note Laboratory Tests 03/09/19 03/09/19 04:21 04:21 Hgb 12.5 Hct 37.2 Plt Count 285 BUN 12 Creatinine 0.60 Est GFR (Non-Af Amer) > 60 BUN/Creatinine Ratio 20 Laboratory Tests 03/07/19 03/07/19 03/08/19 13:36 21:37 03:41 Troponin I < 0.03 < 0.03 < 0.03 03/09/19 14:04 Troponin I < 0.03 Selected Entries 03/10/19 07:17 Temperature 97.9 F Pulse Rate 78 Respiratory Rate 16 Blood Pressure 110/74 O2 Sat by Pulse Oximetry 95 Oxygen Delivery Method Room Air Chest pain 8/ remains this a.m. after medical management changes with Imdur and BB added. Discussed and reviewed with Dr. Ahn and Dr. Whittaker. Will proceed with LHC today. Discussed risks associated with procedure, and s/p procedure education with the patient and significant other. Patient agrees to procedure and understands all risks associated with interventions. Will order a stat BMP prior to LHC. CHADS2-VASC Score - Score Age: Less than 65 Score: 0 HAS-BLED Score - Score Medication usage predisposing to bleeding: Antiplatelet agents, NSAIDs, Anticoagulants Score: 1
[2019-03-10] MEDS ORDERED: Ondansetron 4 MG/2 ML VIAL IVP PRN (10:38)
[2019-03-10 11:03] LABS: BUN/Creatinine Ratio 23 (6-26); Blood Urea Nitrogen 13 mg/dL (6-20); Calcium 9.3 mg/dL (8.6-10.3); Carbon Dioxide 27 mEq/L (23-29); Chloride 102 mEq/L (98-107); Glucose 186 mg/dL (70-105); Osmolality,Calculated 291 (280-300); Potassium 3.7 mEq/L (3.5-5.1); Sodium 138 mEq/L (136-145); eGFR For African Americans > 60 (> 60); eGFR For Non-African Americans > 60 (> 60)
[2019-03-10] MEDS: Acetaminophen 325 MG TABLET PO PRN (11:21)
--- NOTE | 2019-03-10 11:54 | Event Note ---
Date of Encounter: 03/10/19 Time of Encounter: 11:47 I have seen and evaluated the patient at bedside. Patient is still reporting 7 out of 10 retrosternal chest pain. Denies shortness of breath, reports chronic abdominal discomfort secondary to her gastroparesis. denies nausea. Physical exam: Vitals: Reviewed General: Alert and oriented x4. In mild distress due to chest pain Cardiovascular: RRR, normal S1 & S2, no rubs, murmurs or gallops. Lungs: CTA b/l, no wheezes or crackles. Abdomen: Obese, soft, non-tender, no rigidity. Extremities: No edema Neurological: Normal cognition and motor skills. Rest of the physical exam is non contributory Assessment: 1. Chest pain 2. DM 3. HTN 4. Gastroparesis 5. IBS 6. VTE prophylaxis Plan: patient on a bb, isosorbide and aspirin. still reporting chest pain this morning scheduled for C today cardiology recommendations appreciated keep NPO c/w lamotrigine and trazodone on heparin subq for dvt prophylaxis Disposition: DC home.
[2019-03-10] MEDS: Insulin DETEMIR 100 UNIT/ML X5UNITS SQ SCH (12:23)
[2019-03-10] MEDS ORDERED: *HR* Heparin 10,000 UNIT/10 ML VIAL ONE (12:41)
[2019-03-10] MEDS ORDERED: Verapamil 5 MG/2 ML VIAL ONE (12:41)
[2019-03-10] MEDS ORDERED: Heparin 1,000 UNITS/500 mL 500 ML ONE (12:41)
[2019-03-10] MEDS ORDERED: 0.9 % Sodium Chloride 1,000 ML ONE ×2 (12:41→12:50)
[2019-03-10] MEDS ORDERED: Nitroglycerin 1,000 MCG/10 ML VIAL IV ONE (12:41)
[2019-03-10] MEDS ORDERED: Iopamidol 125 ML INFUS..BTL ONE (12:42)
[2019-03-10] MEDS ORDERED: *HR* Midazolam HCl 2 MG/2 ML VIAL ONE (12:50)
--- NOTE | 2019-03-10 12:55 | Pre-Sedation Evaluation ---
Pre-sedation evaluation - Pre-sedation checklist Date of procedure: 03/10/19 Procedure: Heart Cath Recent Vitals: Last Vital Signs Temp 98.1 F 03/10/19 11:50 Pulse 68 03/10/19 11:50 Resp 16 03/10/19 11:50 BP 110/74 03/10/19 07:17 Pulse Ox 95 03/10/19 11:50 H&P (including ROS) documented in medical record: Yes Previous reaction to sedatives/anesthetics: No Dietary Status: NPO after Midnight Airway Assessment: Patient can open mouth completely, TMJ function normal Dentition: No loose teeth or bridges Possible difficult airway: No ASA Classification *see protocol: CLASS II-Mild systemic disease Cardiac Registry (Cardio Only) - Functional Capacity Functional Capacity: >=4 METS with symptoms - Clincal Frailty Scale Clinical Frailty Scale: Well
--- NOTE | 2019-03-10 13:29 | Event Note ---
Date of Encounter: 03/10/19 Time of Encounter: 13:28 - Cardiology Event Note Cath completed. LVEF 60% rca normal LCA left dominant normal left coronary artery Mild diastolic dysfunction recommend non cardiac evaluation.
--- NOTE | 2019-03-10 13:39 | Invasive Diagnostic Lab Proc ---
Name: Stephanie Fonseca Date of Study: 03/10/2019 Date: 1980 Ht: 60.0in Medical Record#: [id number] Age: 38 Wt: 196.43lb Gender: Female BSA: 1.85 Order #: [id number] BMI: 38.36 Physicians Procedure Physician: Curtis Whittaker MD Referring MD: Referring MD: Staff Name Position Time In Barbra Leonard RT (R) Monitor 12:52 PM Jessie Ham RN Packing Inspector 12:52 PM Petrona Craven RT (R) Scrub 12:52 PM Procedures Performed Procedure L HRT ARTERY/VENTRICLE ANGIO Pre-Procedure Checklist Informed consent is complete signed and on chart. H&P is on chart. ID band is on and ID verified with patient. Patient NPO for procedure The procedure was described for the patient and questions were answered. Blood Pressure: 110/74 ECG is on chart. Rhythm: NSR Plan of Care Patient will tolerate the procedure without complications. Adequate level of comfort will be maintained. Hemodynamics will remain stable Patient will recover from procedure without complications. Respiratory function will be maintained. Cardiac rhythm will remain stable. Patient temperature will be maintained. Patient and/or family have verbalized understanding of the procedure. Patient Education Chief Complaint/Reason for Test: Cardiac Cath Developmental Category: Adult (18-64 years) Developmentally Appropriate for Age: Yes Learning Barriers: None Education Needs: Procedure Education Method: Verbal Information Taught: Cardiac Cath Educational Evaluation: Able to repeat information Intravenous Access Time IV Size Location DC'd Fluid/Drip Rate Units RN 12:48 PM 20g 1 /" Patent On Arrival Rt Arm 0.9NaCl 25 ml/hr Jessie Ham RN Allergies morphine tramadol Vital Signs Time BP (mmHg) HR (bpm) O2 Sat. RR (bpm) LOC 12:48 PM 110 / 74 78 95 % 18 5 = Fully awake and oriented or at pre-proc level 01:06 PM / % 5 = Fully awake and oriented or at pre-proc level 01:06 PM / % 4 = Oriented but drowsy 01:01 PM 144 / 95 72 99 % 16 01:05 PM 130 / 96 75 100 % 16 01:10 PM 143 / 92 75 100 % 16 01:15 PM 131 / 84 91 100 % 16 01:20 PM 125 / 78 80 99 % 16 01:25 PM 124 / 80 69 100 % 18 Procedural Medications Time Medication Dose Units Method Given By 01:05 PM Versed 2 mg Intravenous Jessie Ham RN 01:06 PM Oxygen 2 L/min nasal cannula Jessie Ham RN 01:11 PM Lidocaine 2% 2 ml Subcutaneous Curtis Whittaker MD 01:13 PM Heparin 4000 units Nitroglycerin 200 mcg Verapamil 2.5 mg Intraarterial Curtis Whittaker MD ASA Classification: CLASS II- Mild systemic disease (i.e. well-controlled diabetes, hypertension, asthma, cigarette smoking) Patrizia Score Preprocedure Postprocedure Activity 2- Moves 4 extremities sustained head lift Activity 2- Moves 4 extremities sustained head lift Circulation 2- SBP +/= 20 points of pre-anesthetic level Circulation 2- SBP +/= 20 points of pre-anesthetic level Consciousness 2- Awake and alert oriented x 3 Consciousness 2- Awake and alert oriented x 3 O2 Saturation 2- Able to maintain O2 satruation of 92% on room air O2 Saturation 2- Able to maintain O2 satruation of 92% on room air Respiratory 2- Able to deep breathe and cough well Respiratory 2- Able to deep breathe and cough well Total Score 10 Total Score 10 Contrast Agent: Isovue Diagnostic Contrast: 80 ml Total Contrast: 80 ml Fluoro Dose: 26 mGy Procedure Log Time Note Enter By 12:52 PM CathStat 12:52 PM Pt arrived to [employer] [employer] 2 at 12:52 twilson 12:52 PM Physician arrived 12:52 twilson 12:52 PM Meet and greet completed twilson 12:52 PM Sign in performed according to hospital policy. Informed consent was obtained. twilson 12:52 PM Patient charges- Angio tray pack, Navilyst 3mm J, Pulse Oximetry and ACIST tubing and transducer twilson 12:52 PM Barbra Leonard RT (R) Position: Monitor Time in: 12:52 twilson 12:52 PM Jessie Ham RN Position: Packing Inspector Time in: 12:52 twilson 12:52 PM Petrona Craven RT (R) Position: Scrub Time in: 12:52 twilson 12:59 PM Vitals capture started with the following parameters, Patient=Adult, Interval=5 min, Initial Gevsuzzp=370 mmHg, Deflation Rate=3 mmHg, Cuff placed on Right Arm 01:01 PM HR=72 bpm, ODRP=124/95 mmhg, SpO2=99.0 %, Resp=16 B/min 01:03 PM Recorded ECG: HR=76 Condition=Condition 1 01:05 PM HR=75 bpm, VBUZ=604/96 mmhg, QvR6=768.0 %, Resp=16 B/min 01:05 PM Procedure start 13:05 twilson 01:05 PM ASA Class CLASS II- Mild systemic disease (i.e. well-controlled diabetes, hypertension, asthma, cigarette smoking) twilson :05 PM Case Delayed no twilson : PM Hair removed from procedure site in procedure lab using clippers. Right wrist and Right groin prepped with Chloraprep by Barbra Leonard (Tosin), then patient was draped. Skin intact. twilson :05 PM Time: 13:05 Versed 2 mg Intravenous Given by Jessie Ham RN twilson : PM Time: 13:06 Oxygen on at 2 L/min per nasal cannula by Jessie Ham RN twilson : PM Time: 13:06 Patient comfortable and pain free: Yes twilson : PM Time: 13:06LOC: 5 = Fully awake and oriented or at pre-proc level twilson :10 PM HR=75 bpm, SWFF=539/92 mmhg, YfA2=731.0 %, Resp=16 B/min 01:10 PM Pressure channel 2 zeroed. 01:11 PM Time out was performed according to hospital policy. Conscious sedation and anesthesia was achieved (see medication log with in this report above) twilson : PM Time: 13:11 2 ml Lidocaine 2% to right radial Subcutaneous Given by Curtis Whittaker MD twilson :12 PM Access obtained by percutaneous puncture. 5/6Fr 10cm Terumo Glidesheath sheath placed in right Radial artery. [id number] twilson :13 PM Time: 13:13 Patient given 4,000 units Heparin, 200 mcg Nitroglycerin, and 2.5 mg Verapamil Intraarterial by Curtis Whittaker MD. This is given to reduce risk of vessel spasm and thrombosis. twilson : PM 5Fr FL 3.5 catheter inserted over the wire DNC twilson : PM Wire removed twilson :14 PM Recorded Pressure: Ao, HR=86, Condition=Condition 1 (Aorta) Ao 149/102/124 01:14 PM LCA angiography performed in multiple views. twilson 01:15 PM HR=91 bpm, WUVV=013/84 mmhg, IpF1=581.0 %, Resp=16 B/min 01:15 PM Wire reinserted. twilson 01:16 PM Catheter removed twilson 01:16 PM 5Fr FR 4 catheter inserted over the wire [facility] twilson 01:16 PM Wire removed twilson 01:16 PM Recorded Pressure: Ao, HR=80, Condition=Condition 1 (Aorta) Ao 145/99/121 01:19 PM Recorded Pressure: Ao, HR=79, Condition=Condition 1 (Aorta) Ao 143/109/126 01:20 PM HR=80 bpm, ACSG=427/78 mmhg, SpO2=99.0 %, Resp=16 B/min 01:20 PM Recorded Pressure: Ao, HR=80, Condition=Condition 1 (Aorta) Ao 132/98/115 01:21 PM RCA angiography performed in multiple views. twilson :21 PM Wire reinserted. twilson :21 PM Catheter removed twilson : PM 5Fr Pigtail catheter inserted over the wire [facility] twilson :21 PM Catheter crossed the aortic valve and was selectively placed in the left ventricle. Pressures recorded on pullback for left heart catheterization. twilson : PM Time: 13:06 Patient comfortable and pain free: Yes twilson : PM Time: 13:06LOC: 4 = Oriented but drowsy twilson :22 PM Coronary Dominance: Left twilson :22 PM Recorded Pressure: LV, HR=73, Condition=Condition 1 (Left Ventricle) LV 174/18/27 01:22 PM Recorded Pressure: LV, HR=76, Condition=Condition 1 (Left Ventricle) LV 157/16/25 01:22 PM Recorded Pressure: LV, Ao, HR=77, Condition=Condition 1 (Left Ventricle) LV 134/27/29, (Aorta) Ao 133/83/110 01:23 PM Wire removed twilson : PM Bolus angiogram of left Ventricle complete: 10 ml/sec for a total of 10 mls twilson :23 PM Wire reinserted. twilson 01:23 PM Catheter removed twilson :23 PM Wire removed twilson : PM Procedure completed at 13:23 03/10/2019 twilson 01:23 PM Did you address WILLIAN flow and Dominance? YesCoronary Dominance: Left twilson 01:24 PM Isovue 370 - 125ml,1 Bottle(s) used. twilson 01:24 PM Arterial sheath pulled, Vasc Band closure device used and was Successful S/N. twilson 01:24 PM Estimated Blood Loss: minimal twilson 01:25 PM HR=69 bpm, AOST=858/80 mmhg, DoQ7=546.0 %, Resp=18 B/min 01:27 PM 13 ml air in Vasc Band. twilson 01:27 PM Post ECG NSR twilson 01:27 PM Post Blood Pressure 124/80 twilson 01:27 PM 13:27 Post Pulses Bilateral radial 2+ twilson 01:27 PM Information taught Cardiac Cath and Vasc Band twilson 01:27 PM Education needs Procedure, Plan of Care, and Responsibilities of Patient in Care twilson 01:27 PM Learning barriers :None twilson 01:27 PM Education Methods Verbal twilson 01:27 PM Education evaluation Able to repeat information twilson 01:27 PM Site status No bleeding/ No Hematoma - Rt Wrist as reported by Petrona Craven RT (R) at 13:27 twilson 01:27 PM Family placed in consult room. twilson 01:28 PM Delay to floor No twilson 01:29 PM Sign out completed: Radiation Dose 306.37 mGy, 26.3 Gy/cm2 Fluoro Time: 4.8 Isovue 370 - 200ml contrast 80 ml given by Curtis Whittaker MD. Complications: None. The patient was discharged out of the label paster in stable condition. Sedation minutes 24. Cardiac Rehab Consult needed: No. Confirmed administered medications: Yes twilson 01:33 PM Patient out of room: 13:33 twilson Complications Complication None Hemodynamics Pressures Site Systolic/A Wave Diastolic/V Wave Mean AO 149 102 124 AO 145 99 121 AO 143 109 126 AO 132 98 115 LV 174 18 27 LV 157 16 25 LV 134 27 29 AO 133 83 110 Post Procedure Information Blood Pressure: 124/80 mmHg Rhythm: NSR Post procedural instructions were given Closure Device Time Device Success/Fail 03/10/2019 1:28:00 PM Mechanical Compression Successful Site Checks Time Location Status Staff Sheath In? Note 01:27 PM Rt Wrist No bleeding/ No Hematoma Petrona Craven RT (R) Pulses Time Site Pre-Procedure Post-Procedure Note 03/10/2019 1:05:00 PM Bilateral radial 2+ 03/10/2019 1:05:00 PM 1:27:00 PM Bilateral radial 2+ Updated by RT Bridgette (R) on 03/10/2019 1:33:42 PM electronically signed on 03/10/2019 1:34:05 PM with status of Final
[2019-03-10] MEDS ORDERED: Isosorbide MONOnitrate (24 HR) 30 MG TAB.ER.24H PO SCH (14:56)
[2019-03-10 15:58] VITALS: BP 113/71
--- NOTE | 2019-03-10 16:06 | Electrocardiograph Report ---
[address] [place], [place] [address] Test Date: 2019-03-09 Pat Name: Stephanie Fonseca Department: 113 Room: 3B46 Gender: F Production Cell Leader: : 1980 Requested By: Hardeep Ahn Order Number: [id number] Reading MD: Albert Hurt Measurements Intervals [place] Rate: 73 P: 46 WV: 161 QRS: 31 QRSD: 105 T: 45 QT: 379 QTc: 405 Interpretive Statements SINUS RHYTHM Electronically Signed On 03-10-2019 16:04:56 EDT by Albert Hurt
== END 2019-03-10 16:57 | disposition home or self-care (01) ==
LOC: EMEROOARM 12:50 → 3BNU 12:50 → SUATTDRO 16:32 → 3BNU 17:47
PROVIDERS: ADMIT Internal Medicine; ATTEND Internal Medicine

== ENCOUNTER 2020-07-09 17:46 | Observation (INO) ==
[2020-07-09] MEDS ORDERED: 0.9 % Sodium Chloride 500 ML IVC ONE (18:27)
[2020-07-09] MEDS ORDERED: Aspirin 81 MG TAB.CHEW PO ONE (18:27)
[2020-07-09 18:54] LABS: Basophils # 0.1 K/mcL (0.0-0.2); Basophils % 0.7 %; Eosinophils # 0.2 K/mcL (0.0-0.6); Eosinophils % 1.5 %; Hematocrit 41.7 % (35.3-44.9); Hemoglobin 13.9 g/dL (11.5-15.4); Immature Granulocytes % 0.2 % (0-4); Lymphocytes # 3.3 K/mcL (0.6-4.6); Lymphocytes % 33.7 %; Mean Corpuscular HGB Conc 33.3 g/dL (31.6-35.5); Mean Corpuscular Hemoglobin 28.5 pg (28.0-33.3); Mean Corpuscular Volume 85.6 fL (83.0-100.0); Mean Platelet Volume 9.4 fL (9.4-12.4); Monocytes # 0.5 K/mcL (0.0-1.3); Monocytes % 5.4 %; Neutrophils # 5.7 K/mcL (1.6-8.9); Platelet Count 325 K/mcL (140-400); Red Blood Count 4.87 M/mcL (3.82-4.97); Red Cell Distribution Width 12.6 % (11.5-14.5); Segmented Neutrophils % 58.5 %; White Blood Count 9.8 K/mcL (4.3-11.1)
[2020-07-09 18:59] LABS: INR 1.1; Prothrombin Time 12.3 Seconds (9.4-12.1)
[2020-07-09 19:02] LABS: Activated Partial Thrombo Time 28.7 Seconds (26.0-36.0)
[2020-07-09 19:19] LABS: BUN/Creatinine Ratio 20 (6-26); Blood Urea Nitrogen 14 mg/dL (6-20); Calcium 9.1 mg/dL (8.6-10.3); Carbon Dioxide 19 mEq/L (23-29); Chloride 104 mEq/L (98-107); Glucose 173 mg/dL (70-105); Osmolality,Calculated 291 (280-300); Potassium 3.7 mEq/L (3.5-5.1); Sodium 138 mEq/L (136-145); Troponin I < 0.03 ng/mL (< 0.04); eGFR For African Americans > 60 (> 60); eGFR For Non-African Americans > 60 (> 60)
[2020-07-09 19:53] LABS: Adenovirus Not Detected (Not Detect); Bordetella Pertussis Not Detected (Not Detect); Chlamydophila pneumoniae Not Detected (Not Detect); Coronavirus 229E Not Detected (Not Detect); Coronavirus HKU1 Not Detected (Not Detect); Coronavirus NL63 Not Detected (Not Detect); Coronavirus OC43 Not Detected (Not Detect); Human Metapneumovirus Not Detected (Not Detect); Human Rhinovirus/Enterovirus Not Detected (Not Detect); Influenza A Subtype 2009 H1 Not Detected (Not Detect); Influenza B Not Detected (Not Detect); Mycoplasma pneumoniae Not Detected (Not Detect); Parainfluenza Virus 1 Not Detected (Not Detect); Parainfluenza Virus 2 Not Detected (Not Detect); Parainfluenza Virus 3 Not Detected (Not Detect); Parainfluenza Virus 4 Not Detected (Not Detect); Respiratory Syncytial Virus Not Detected (Not Detect); SARS-CoV-2 Not Detected (Not Detect)
[2020-07-09] MEDS ORDERED: Isovue-370 500 ML BOTTLE IVP ONE (20:11)
[2020-07-09] MEDS ORDERED: *HR* HYDROcodone/Acet 5/325 mg TABLET PO ONE (23:07)
[2020-07-09] MEDS ORDERED: Ibuprofen 600 MG TABLET PO ONE (23:07)
[2020-07-10] MEDS ORDERED: Ondansetron ODT 4 MG TAB.RAPDIS SL PRN (01:43)
[2020-07-10] MEDS ORDERED: Naloxone 0.4 MG/ML INJ IVP PRN (01:43)
[2020-07-10] MEDS ORDERED: Acetaminophen 325 MG TABLET PO PRN (01:43)
[2020-07-10] MEDS: Nitroglycerin 0.4 MG TAB.SUBL SL SCH ×3 (01:57→02:31)
[2020-07-10] MEDS ORDERED: Morphine Sulfate 2 MG/ML SYRINGE IVP ONE (02:06)
[2020-07-10] MEDS ORDERED: *HR* Dextrose 50 % in Water (Vial) 50 ML VIAL IVP PRN (02:17)
[2020-07-10] MEDS ORDERED: Dextrose Gel 15 GM/37.5 ML TUBE PO PRN ×2 (02:17)
[2020-07-10] MEDS ORDERED: D5% in Water 1,000 ML IVC PRN (02:17)
[2020-07-10] MEDS: 0.9 % Sodium Chloride 1,000 ML IVC SCH ×2 (02:53→20:12)
[2020-07-10] MEDS: Insulin LISPRO 300 UNITS/3 ML VIAL SUBQ SCH ×4 (02:53→17:14)
[2020-07-10 03:11] LABS: Basophils # 0.1 K/mcL (0.0-0.2); Basophils % 0.9 %; Eosinophils # 0.2 K/mcL (0.0-0.6); Hematocrit 37.8 % (35.3-44.9); Hemoglobin 12.3 g/dL (11.5-15.4); Immature Granulocytes % 0.2 % (0-4); Lymphocytes # 3.6 K/mcL (0.6-4.6); Lymphocytes % 44.5 %; Mean Corpuscular HGB Conc 32.5 g/dL (31.6-35.5); Mean Corpuscular Hemoglobin 27.6 pg (28.0-33.3); Mean Corpuscular Volume 84.8 fL (83.0-100.0); Mean Platelet Volume 9.7 fL (9.4-12.4); Monocytes # 0.6 K/mcL (0.0-1.3); Monocytes % 7.4 %; Neutrophils # 3.7 K/mcL (1.6-8.9); Platelet Count 286 K/mcL (140-400); Red Blood Count 4.46 M/mcL (3.82-4.97); Red Cell Distribution Width 12.8 % (11.5-14.5); White Blood Count 8.2 K/mcL (4.3-11.1)
[2020-07-10 03:24] LABS: Alanine Aminotransferase 28 Units/L (7-52); Albumin/Globulin Ratio 1.6 (1.1-2.2); Alkaline Phosphatase 53 Units/L (34-104); Aspartate Amino Transferase 21 Units/L (13-39); BUN/Creatinine Ratio 18 (6-26); Bilirubin,Total 0.4 mg/dL (0.3-1.0); Blood Urea Nitrogen 15 mg/dL (6-20); Calcium 8.7 mg/dL (8.6-10.3); Carbon Dioxide 23 mEq/L (23-29); Chloride 106 mEq/L (98-107); Chol/HDL Ratio 2.6 (0-4.9); Cholesterol 67 mg/dL (< 200); Globulin 2.5 g/dL (2.4-3.5); Glucose 138 mg/dL (70-105); HDL Cholesterol 26 mg/dL (40-59); Magnesium 1.8 mg/dL (1.6-2.6); Osmolality,Calculated 291 (280-300); Phosphorous 4.1 mg/dL (2.7-4.5); Potassium 3.7 mEq/L (3.5-5.1); Sodium 139 mEq/L (136-145); Total Protein 6.5 g/dL (6.4-8.9); Triglycerides 304 mg/dL (< 150); Troponin I < 0.03 ng/mL (< 0.04); eGFR For African Americans > 60 (> 60); eGFR For Non-African Americans > 60 (> 60)
[2020-07-10 03:37] LABS: Thyroid Stimulating Hormone 6.798 mcIU/mL (0.340-5.600)
[2020-07-10 03:40] LABS: Bacteria,Urine Few per hpf (None-Few); Bilirubin,Urine Negative (Negative); Blood,Urine Negative (Negative); Clarity,Urine Turbid (Clear); Color,Urine Light-Orange (Yellow); Glucose,Urine (UA) >=1000 mg/dL (Normal); Ketones,Urine Negative (Negative); Leukocyte Esterase,Urine Moderate (Negative); Mucus,Urine Few per lpf (None-Few); Nitrite,Urine Negative (Negative); Protein,Urine 30 mg/dL (Neg-Trace); Specific Gravity,Urine > 1.030 (1.010-1.025); Squamous Epithelial Cell,Urine Many per hpf (None-Few); Urobilinogen,Urine Normal (Normal); WBC,Urine 30-50 per hpf (0-3)
[2020-07-10 03:50] LABS: Amphetamine Screen,Urine Negative ng/mL (Cutoff=1000); Barbiturate Screen,Urine Negative ng/mL (Cutoff=200); Benzodiazepines Screen,Urine Negative ng/mL (Cutoff=200); Cannabinoid Screen,Urine Negative ng/mL (Cutoff = 50); Cocaine Screen,Urine Negative ng/mL (Cutoff= 300); Opiate Screen,Urine Positive ng/mL (Cutoff=300); Phencyclidine Screen,Urine Negative ng/mL (Cutoff=25)
[2020-07-10 05:18] LABS: Estimated Average Glucose 180 mg/dl; Hemoglobin A1C 7.9 %
[2020-07-10] MEDS: *HR* Enoxaparin 40 MG/0.4 ML SYRINGE SQ SCH (06:10)
[2020-07-10 10:27] LABS: Adenovirus Not Detected (Not Detect); Bordetella Pertussis Not Detected (Not Detect); Chlamydophila pneumoniae Not Detected (Not Detect); Coronavirus 229E Not Detected (Not Detect); Coronavirus HKU1 Not Detected (Not Detect); Coronavirus NL63 Not Detected (Not Detect); Coronavirus OC43 Not Detected (Not Detect); Human Metapneumovirus Not Detected (Not Detect); Human Rhinovirus/Enterovirus Not Detected (Not Detect); Influenza A Subtype 2009 H1 Not Detected (Not Detect); Influenza B Not Detected (Not Detect); Mycoplasma pneumoniae Not Detected (Not Detect); Parainfluenza Virus 1 Not Detected (Not Detect); Parainfluenza Virus 2 Not Detected (Not Detect); Parainfluenza Virus 3 Not Detected (Not Detect); Parainfluenza Virus 4 Not Detected (Not Detect); Respiratory Syncytial Virus Not Detected (Not Detect); SARS-CoV-2 Not Detected (Not Detect)
[2020-07-10] MEDS ORDERED: Regadenoson 0.4 MG/5 ML SYRINGE IVP ONE (10:52)
[2020-07-10] MEDS ORDERED: Gabapentin 300 MG CAPSULE PO PRN (14:38)
[2020-07-10] MEDS ORDERED: Insulin LISPRO 300 UNITS/3 ML VIAL SUBQ SCH (21:00)
[2020-07-10] MEDS ORDERED: traZODone 50 MG TABLET PO SCH (21:00)
[2020-07-11 03:09] LABS: Basophils # 0.1 K/mcL (0.0-0.2); Basophils % 0.8 %; Eosinophils # 0.3 K/mcL (0.0-0.6); Eosinophils % 4.2 %; Hemoglobin 11.8 g/dL (11.5-15.4); Immature Granulocytes % 0.1 % (0-4); Lymphocytes # 2.9 K/mcL (0.6-4.6); Lymphocytes % 40.7 %; Mean Corpuscular HGB Conc 32.8 g/dL (31.6-35.5); Mean Corpuscular Hemoglobin 28.2 pg (28.0-33.3); Mean Corpuscular Volume 85.9 fL (83.0-100.0); Mean Platelet Volume 9.5 fL (9.4-12.4); Monocytes # 0.5 K/mcL (0.0-1.3); Monocytes % 6.5 %; Neutrophils # 3.4 K/mcL (1.6-8.9); Platelet Count 252 K/mcL (140-400); Red Blood Count 4.19 M/mcL (3.82-4.97); Red Cell Distribution Width 12.6 % (11.5-14.5); Segmented Neutrophils % 47.7 %; White Blood Count 7.1 K/mcL (4.3-11.1)
[2020-07-11 03:28] LABS: BUN/Creatinine Ratio 28 (6-26); Blood Urea Nitrogen 14 mg/dL (6-20); Calcium 8.2 mg/dL (8.6-10.3); Carbon Dioxide 17 mEq/L (23-29); Chloride 107 mEq/L (98-107); Glucose 105 mg/dL (70-105); Osmolality,Calculated 283 (280-300); Sodium 136 mEq/L (136-145); eGFR For African Americans > 60 (> 60); eGFR For Non-African Americans > 60 (> 60)
[2020-07-11] MEDS: *HR* Enoxaparin 40 MG/0.4 ML SYRINGE SQ SCH (05:16)
[2020-07-11] MEDS: Insulin LISPRO 300 UNITS/3 ML VIAL SUBQ SCH ×2 (07:45→11:05)
[2020-07-11] MEDS ORDERED: Fluticasone Propionate Nasal 50 MCG/SPRAY BOTTLE NS SCH (09:00)
[2020-07-11] MEDS ORDERED: lisinopriL 20 MG TABLET PO SCH (09:00)
[2020-07-11 10:44] VITALS: BP 90/61
== END 2020-07-11 15:09 | disposition home or self-care (01) ==
LOC: CDU 17:46 → EMEROOARM 17:46 → SUATTDRO 07-10 00:39 → CDU 07-10 01:38
PROVIDERS: ADMIT Student in an Organized Health Care Education/Training Program; ATTEND Internal Medicine